=== PATIENT | female | born 1975 ===

== ENCOUNTER 2017-08-23 15:45 | Emergency (ER) | payer MEDICAID ==
[2017-08-23 15:45] VITALS: BMI 46.5
--- NOTE | 2017-08-23 16:05 | ED PDOC ---
Arrival/HPI - General Chief Complaint: Abdominal Pain Time Seen by Provider: 08/23/17 16:05 Historian: Patient - History of Present Illness Narrative History of Present Illness (Text): 08/23/17 16:51 41 year old female presents to the Emergency department complaining of epigastric discomfort radiating to back and flank bilaterally for less than 1 day. Patient describes the pain as 10/10 with some burning discomfort. Patient informs bitter taste in her mouth associated with radiating epigastric pain up to her chest. Patient states mild shortness of breath and decreased appetite. Patient informs similar symptoms in the past for which she was diagnosed with gastritis. Patient states her last endoscopy and [place] [facility] [place] Patient admits to spicy food intake last night and is an occasional caffeine drinker. Patient denies any fever, chills, nausea, vomiting, changes to urinary output or bowel movement, syncope, chest pain, LOC, hematuria, hematochezia or any other complains. Time/Duration: 24 hours Symptom Onset: Gradual Symptom Course: Unchanged Quality: Aching Severity Level: Severe Activities at Onset: Light Context: Home Past Medical History - Provider Review Nursing Documentation Reviewed: Yes - Travel History Have you recently traveled outside [place] w/in the past 3 mons?: No - Past History Past History: No Previous - Infectious Disease Hx of Infectious Diseases: None - Tetanus Immunization Tetanus Immunization: Unknown - Cardiac Hx Cardiac Disorders: No - Pulmonary Hx Asthma: Yes - Neurological Hx Neurological Disorder: No - HEENT Hx HEENT Disorder: No - Renal Hx Renal Disorder: No - Endocrine/Metabolic Hx Endocrine Disorders: No - Hematological/Oncological Hx Blood Disorders: No - Integumentary Hx Dermatological Disorder: No - Musculoskeletal/Rheumatological Hx Musculoskeletal Disorders: No - Gastrointestinal Hx Gastrointestinal Disorders: No - Genitourinary/Gynecological Hx Genitourinary Disorders: No - Psychiatric Hx Anxiety: Yes Hx Depression: Yes Hx Substance Use: No - Surgical History Hx Section: Yes (X2(1996,2005)) Hx Tubal Ligation: Yes - Anesthesia Hx Anesthesia: Yes Hx Anesthesia Reactions: No Hx Malignant Hyperthermia: No - Suicidal Assessment Feels Threatened In Home Enviroment: No Family/Social History - Physician Review Nursing Documentation Reviewed: Yes Family/Social History: No Known Family HX Smoking Status: Never Smoked Hx Alcohol Use: No Hx Substance Use: No Hx Substance Use Treatment: No Allergies/Home Meds Allergies/Adverse Reactions: Allergies seasonal Allergy (Mild, Uncoded 08/23/17 16:10) CONGESTION Home Medications: Home Meds Medication Instructions Recorded Confirmed Amitriptyline [Elavil] 100 mg PO BID 09/15/16 08/23/17 Butalbital/Acetaminophen 1 tab PO BID 09/15/16 08/23/17 [Butalbital-Acetaminophen 325 mg-50 mg] Gabapentin [Neurontin] 2 cap PO BID 09/15/16 08/23/17 LORazepam [Ativan] 1 mg PO DAILY PRN 09/15/16 08/23/17 Montelukast [Singulair] 10 mg PO HS 09/15/16 08/23/17 Omeprazole 40 mg PO BID 09/15/16 08/23/17 Trazodone HCl 150 mg PO HS 09/15/16 08/23/17 Albuterol HFA [Ventolin HFA 90 200 puff IH PRN PRN 10/28/16 08/23/17 mcg/actuation (8 g)] FLUoxetine [Prozac] 10 mg PO DAILY 10/28/16 08/23/17 Latanoprost 0.005% Opht [XALATAN 2.5 ml OP HS 10/28/16 08/23/17 2.5 Ml] Review of Systems - Review of Systems Constitutional: Fatigue Eyes: Normal ENT: Normal Respiratory: SOB Cardiovascular: Chest Pain Gastrointestinal: Abdominal Pain, Nausea. absent: Constipation, Diarrhea, Vomiting Genitourinary Female: Normal Musculoskeletal: Normal Skin: Normal Neurological: Normal Endocrine: Normal Hemo/Lymphatic: Normal Psychiatric: Normal Physical Exam Vital Signs Reviewed: Yes Vital Signs Temp Pulse Resp BP Pulse Ox 08/23/17 16:18 98.2 F 91 H 17 125/77 98 Temperature: Afebrile Blood Pressure: Normal Pulse: Regular Respiratory Rate: Normal Appearance: Positive for: Well-Appearing, Uncomfortable, Other (alert/awake, GCS = 15, oriented x 3, cooperative, follows commands with ease, NAD, resting in bed) Mental Status: Positive for: Alert and Oriented X 3 - Systems Exam Head: Present: Atraumatic, Normocephalic Pupils: Present: PERRL, Other (no nystagmus, no photophobia, sclera anicteric, visual field intact b/l) Extroacular Muscles: Present: EOMI Conjunctiva: Present: Normal Ears: Present: Normal Mouth: Present: Dry, Normal Teeth, Other (uvula/tongue are midline, no exudate/ lesions, no drooling/stridor, intact dentitions) Pharnyx: Present: Normal Nose (External): Present: Atraumatic Nose (Internal): Present: Normal Inspection Neck: Present: Normal Range of Motion, Trachea Midline. No: MIDLINE TENDERNESS Respiratory/Chest: Present: Clear to Auscultation, Good Air Exchange. No: Respiratory Distress Cardiovascular: Present: Regular Rate and Rhythm, Normal S1, S2. No: Murmurs Abdomen: Present: Tenderness (mid abd tenderness), Normal Bowel Sounds, Other ( well nourished/obese female, no sotelo's sign, no mcburney's point tenderness, no masses/rebound/guarding/rigidity) Back: Present: Normal Inspection. No: CVA Tenderness Upper Extremity: Present: Normal Inspection, Normal ROM, NORMAL PULSES, Neurovascularly Intact, Capillary Refill < 2s. No: Edema Lower Extremity: Present: Normal Inspection, NORMAL PULSES, Normal ROM, Neurovascularly Intact, Capillary Refill < 2 s. No: Edema Neurological: Present: GCS=15, CN II-XII Intact, Speech Normal Skin: Present: Warm, Other (cap refill < 1sec, no ulcerations, no petechiae, no rashes) Psychiatric: Present: Alert, Oriented x 3, Normal Insight Medical Decision Making ED Course and Treatment: 08/23/17 16:29 Impression: epigastric pain i have consider all the differential diagnosis regarding pt's chief medical complaints/clinical findings, including but are not limited to: epigastric pain A/P: epigastric pain - labs - iv - us - ua - observe - supportive care 08/23/17 17:58 pt felt some improvement pt is currently feeling sob and is asking for rescue inhaler 08/23/17 19:25 pt tolerated PO pt states her pain is easing up pt is made aware of her medical results pt does not feel it necessary for further dx with U/S, and i agree, will cancel pt is encouraged bland diet pt is encouraged no fatty/spicy foods pt will f/u as directed pt will be discharged home Re-evaluation Time: 17:55 Reassessment Condition: Improving,but remains with symptoms - Lab Interpretations Lab Results: 08/23/17 16:40 08/23/17 16:40 Lab Results 08/23/17 16:40: Sodium 138, Potassium 3.4 L, Chloride 102, Carbon Dioxide 28, Anion Gap 12, BUN 10, Creatinine 0.6 L, Est GFR ( Amer) > 60, Est GFR ( Non-Af Amer) > 60, Random Glucose 118 H, Calcium 8.6, Total Bilirubin 0.7, AST 21, ALT 24, Alkaline Phosphatase 64, Total Protein 6.1, Albumin 3.2, Globulin 2.9, Albumin/Globulin Ratio 1.1, Lipase 20 L 08/23/17 16:40: WBC 12.3 H D, RBC 5.03, Hgb 9.6 L, Hct 34.7 L, MCV 69.0 L, MCH 19.1 L, MCHC 27.7 L, RDW 21.3 H, Plt Count 581 H, MPV 8.2, Gran % 85.0 H, Lymph % (Auto) 10.8 L, [place] % (Auto) 3.9, Eos % (Auto) 0.2 L, Baso % (Auto) 0.1, Gran # 10.44 H, Lymph # (Auto) 1.3, Hubbard # (Auto) 0.5, Eos # (Auto) 0.0, Baso # (Auto ) 0.01 I have reviewed the lab results: Yes Interpretation: All labs normal - RAD Interpretation Radiology Orders: U/S - cancelled - EKG Interpretation EKG Interpretation (Text): 08/23/17 18:00 NSR at 90 bpm, normal axis, no ectopy, poor R-wave progression, non-specific st- t changes, ABNL EKG; unchanged compare with old ekg 12/2016 Interpreted by ED Physician: Yes Type: 12 lead EKG Comparison: Similar to previous EKG - Medication Orders Current Medication Orders: Discontinued Medications Al Hydrox/Mg Hydrox/Simethicone (Maalox Plus 30 Ml) 30 ml PO STAT STA Stop: 08/23/17 16:29 Last Admin: 08/23/17 16:50 Dose: 30 ml Albuterol/Ipratropium (Duoneb 3 Mg/0.5 Mg (3 Ml) Ud) 3 ml IH STAT STA Stop: 08/23/17 17:51 Last Admin: 08/23/17 18:06 Dose: 3 ml Belladonna/Phenobarbital ( Elixir) 10 ml PO STAT STA Stop: 08/23/17 16:28 Last Admin: 08/23/17 17:28 Dose: 10 ml Famotidine (Pepcid) 20 mg IVP STAT STA Stop: 08/23/17 16:27 Last Admin: 08/23/17 16:50 Dose: 20 mg IVP Administration Document 08/23/17 16:50 RG (Rec: 08/23/17 16:50 RG [id number]) Charges for Administration # of IVP Administrations 1 Sodium Chloride (Sodium Chloride 0.9%) 1,000 mls @ 1,000 mls/hr IV .Q1H STA Stop: 08/23/17 17:25 Last Admin: 08/23/17 16:48 Dose: 1,000 mls/hr eMAR Start Stop Document 08/23/17 16:48 RG (Rec: 08/23/17 17:36 RG [id number]) Intravenous Solution Start Date 08/23/17 Start Time 16:48 Lidocaine HCl (Lidocaine 2% Viscous) 10 ml MM STAT STA Stop: 08/23/17 16:29 Last Admin: 08/23/17 16:49 Dose: 10 ml Morphine Sulfate (Morphine) 4 mg IVP STAT STA Stop: 08/23/17 16:27 Last Admin: 08/23/17 17:35 Dose: IVP Administration Document 08/23/17 17:35 RG (Rec: 08/23/17 17:35 RG [id number]) Charges for Administration # of IVP Administrations 0 Morphine Sulfate (Morphine) 4 mg IVP STAT STA Stop: 08/23/17 17:00 Last Admin: 08/23/17 17:29 Dose: 4 mg IVP Administration Document 08/23/17 17:29 RG (Rec: 08/23/17 17:29 RG [id number]) Charges for Administration # of IVP Administrations 1 Ondansetron HCl (Zofran Inj) 4 mg IVP STAT STA Stop: 08/23/17 16:27 Last Admin: 08/23/17 16:50 Dose: 4 mg IVP Administration Document 08/23/17 16:50 RG (Rec: 08/23/17 16:50 RG [id number]) Charges for Administration # of IVP Administrations 1 - Scribe Statement The provider has reviewed the documentation as recorded by the Scribe Gela Sheehan. All medical record entries made by the Scribe were at my direction and personally dictated by me. I have reviewed the chart and agree that the record accurately reflects my personal performance of the history, physical exam, medical decision making, and the department course for this patient. I have also personally directed, reviewed, and agree with the discharge instructions and disposition. Disposition/Present on Arrival - Present on Arrival Any Indicators Present on Arrival: No History of DVT/PE: No History of Uncontrolled Diabetes: Yes Urinary Catheter: No History of Decub. Ulcer: No History Surgical Site Infection Following: None - Disposition Have Diagnosis and Disposition been Completed?: Yes Diagnosis: Acute epigastric pain, Gastritis Disposition: HOME/ ROUTINE Disposition Time: 18:53 Patient Plan: Discharge Patient Problems: Current Active Problems Problem Status Onset Acute epigastric pain Acute Gastritis Acute Condition: STABLE Discharge Instructions (ExitCare): Gastritis (ED), Epigastric Pain (ED) Print Language: SWEDISH Additional Instructions: Make sure to see your doctor in 1-2 days AVOID spicy/fatty foods AVOID alcohol DRINK PLENTY OF FLUIDS take your medications as prescribed RETURN TO ED IF worse pain, cant breath, persistent vomiting, high fever >101- 102 for hours, altered behavior, unable to urinate, heavy/persistent bleeding, passing out, chest pain, or other medical emergencies Prescriptions: Lidocaine 2% Viscous 10 ml MM TID PRN #1 bottle PRN Reason: Pain, Mild (1-3) Ondansetron ODT [Zofran ODT] 4 mg PO TID PRN #12 odt PRN Reason: Nausea/Vomiting oxyCODONE/Acetaminophen [Percocet 5/325 mg Tab] 1 tab PO QID PRN #10 tab PRN Reason: Pain, Moderate (4-7) Referrals: Arun Connors Jr., MD [Primary Care Provider] - Follow up with primary Raleigh Adhikari MD [Staff Provider] - Follow up with primary Forms: [employer] (Sri [place]ankan)
[2017-08-23 16:25] VITALS: TEMP 98.2
[2017-08-23] MEDS ORDERED: Morphine 4 mg/ml ISec IVP STA (16:26)
[2017-08-23] MEDS ORDERED: Sodium Chloride 0.9% 1,000 ML IV STA (16:26)
[2017-08-23] MEDS ORDERED: Atrop/Hyosc/Scopal/PB Elixir (120 ml) PO STA (16:27)
[2017-08-23] MEDS ORDERED: Alum-Mag Hydrox-Simethicone Susp (30 mL) PO STA (16:28)
[2017-08-23] MEDS ORDERED: Morphine 5 MG/ML SYRINGE IVP STA (16:59)
[2017-08-23 17:05] LABS: BASO # 0.01 K/mm3 (0.0-2.0); BASO % 0.1 % (0.0-3.0); EOS % 0.2 % (1.5-5.0); GRAN # 10.44 (1.4-6.5); HEMOGLOBIN 9.6 g/dL (12.0-16.0); LYMPH # 1.3 (1.2-3.4); LYMPH % 10.8 % (22.0-35.0); MEAN CORPUSCULAR HEMOGLOBIN 19.1 pg (25.0-35.0); MEAN CORPUSCULAR HGB CONC 27.7 g/dl (31.0-37.0); MEAN PLATELET VOLUME 8.2 fl (7.0-11.0); MONO # 0.5 (0.1-0.6); MONO % 3.9 % (1.0-6.0); RBC 5.03 10^6/uL (3.5-6.1); RED CELL DISTRIBUTION WIDTH 21.3 % (11.5-14.5); WHITE BLOOD COUNT 12.3 10^3/ul (4.5-11.0)
[2017-08-23 17:14] LABS: ALB/GLOB RATIO 1.1 (1.1-1.8); ALBUMIN 3.2 g/dL (3.0-4.8); ALT/SGPT 24 U/L (7-56); AST/SGOT 21 U/L (14-36); BLOOD UREA NITROGEN 10 mg/dL (7-21); CALCIUM 8.6 mg/dL (8.4-10.5); GFR AFRICAN-AMERICAN > 60; GFR NON-AFRICAN AMERICAN > 60; LIPASE 20 U/L (23-300)
[2017-08-23] MEDS ORDERED: Albuterol-Ipratrop 3 mg / 0.5 (3 ml) UD IH STA (17:50)
[2017-08-23 19:47] VITALS: BP 125/70; PULSE 95; RESP 18; O2SAT 99
[2017-08-23 23:24] LABS: URINE BILIRUBIN NEGATIVE (NEGATIVE); URINE BLOOD NEGATIVE (NEGATIVE); URINE GLUCOSE (UA) NEGATIVE (NEGATIVE); URINE LEUKOCYTE ESTERASE SMALL Leu/uL (NEGATIVE); URINE NITRATE NEGATIVE (NEGATIVE); URINE PROTEIN 30 mg/dL (<30 mg/dL); URINE UROBILINOGEN 0.2 E.U./dL (<1 E.U./dL)
[2017-08-23 23:27] LABS: URINE APPEARANCE SL CLOUDY (CLEAR); URINE COLOR YELLOW (YELLOW)
[2017-08-23 23:39] LABS: URINE RBC 0 - 2 /hpf (0-2)
[2017-08-23 23:40] LABS: URINE BACTERIA FEW (NEG)
--- NOTE | 2017-08-24 11:54 | CARD ---
APPROVED REPORT EKG Measurement Heart [id number] <Conclusion> Normal sinus rhythm Minimal voltage criteria for LVH, may be normal variant Borderline ECG
== END 2017-08-23 19:20 | disposition home or self-care (01) ==
LOC: ED 15:45
DX: K29.70 Gastritis, unspecified, without bleeding (principal)
CPT/HCPCS: 80053; 81001; 83690; 85025; 87086; 93005; 94640; 96374; 96375; 99284; J2270; J2405; J7040

== ENCOUNTER 2017-10-17 13:32 | Emergency (ER) | payer MEDICAID ==
[2017-10-17 13:33] VITALS: BMI 46.5
[2017-10-17 13:41] VITALS: TEMP 98.4
[2017-10-17] MEDS ORDERED: Sodium Chloride 0.9% 1,000 ML IV STA (14:09)
--- NOTE | 2017-10-17 14:15 | ED PDOC ---
Arrival/HPI - General Chief Complaint: GI Problem Time Seen by Provider: 10/17/17 13:52 Historian: Patient - History of Present Illness Narrative History of Present Illness (Text): 10/17/17 14:09 41 year old female, with past medical history of asthma and hernia, presents to the Emergency department complaining of epigastric and right upper quadrant tenderness for past 3 days. Patient informs associated mild nausea and watery diarrhea with 1 episode since onset. Patient denies any fever, chills,vomiting, dysuria, hematuria, chest pain, shortness of breath or any other complaints. PMD: Dr. Connors Time/Duration: < week Symptom Onset: Gradual Symptom Course: Unchanged Quality: Aching Activities at Onset: Light Context: Home Past Medical History - Provider Review Nursing Documentation Reviewed: Yes - Past History Past History: No Previous - Infectious Disease Hx of Infectious Diseases: None - Tetanus Immunization Tetanus Immunization: Unknown - Cardiac Hx Cardiac Disorders: No - Pulmonary Hx Asthma: Yes - Neurological Hx Neurological Disorder: No Hx Alzheimer's Disease: No Hx Migraine: Yes - HEENT Hx HEENT Disorder: No - Renal Hx Renal Disorder: No - Endocrine/Metabolic Hx Endocrine Disorders: No - Hematological/Oncological Hx Blood Disorders: No - Integumentary Hx Dermatological Disorder: No - Musculoskeletal/Rheumatological Hx Musculoskeletal Disorders: Yes Hx Back Pain: Yes Hx Herniated Disk: Yes - Gastrointestinal Hx Gastrointestinal Disorders: No - Genitourinary/Gynecological Hx Genitourinary Disorders: No - Psychiatric Hx Anxiety: Yes Hx Depression: Yes Hx Substance Use: No - Surgical History Hx Section: Yes (X2(1996,2005)) Hx Tubal Ligation: Yes - Anesthesia Hx Anesthesia: Yes Hx Anesthesia Reactions: No Hx Malignant Hyperthermia: No - Suicidal Assessment Feels Threatened In Home Enviroment: No Family/Social History - Physician Review Nursing Documentation Reviewed: Yes Family/Social History: No Known Family HX Smoking Status: Never Smoked Hx Alcohol Use: No Hx Substance Use: No Hx Substance Use Treatment: No Allergies/Home Meds Allergies/Adverse Reactions: Allergies seasonal Allergy (Mild, Uncoded 08/23/17 16:10) CONGESTION Home Medications: Home Meds Medication Instructions Recorded Confirmed Amitriptyline [Elavil] 100 mg PO BID 09/15/16 10/17/17 Butalbital/Acetaminophen 1 tab PO BID PRN 09/15/16 10/17/17 [Butalbital-Acetaminophen 325 mg-50 mg] Gabapentin [Neurontin] 2 cap PO BID 09/15/16 10/17/17 LORazepam [Ativan] 1 mg PO DAILY PRN 09/15/16 10/17/17 Montelukast [Singulair] 10 mg PO HS 09/15/16 10/17/17 Omeprazole 40 mg PO BID 09/15/16 10/17/17 Trazodone HCl 150 mg PO HS 09/15/16 10/17/17 Albuterol HFA [Ventolin HFA 90 200 puff IH PRN PRN 10/28/16 10/17/17 mcg/actuation (8 g)] FLUoxetine [Prozac] 10 mg PO DAILY 10/28/16 10/17/17 Latanoprost 0.005% Opht [XALATAN 2.5 ml OP HS 10/28/16 10/17/17 2.5 Ml] Review of Systems - Physician Review All systems were reviewed & negative as marked: Yes - Review of Systems Constitutional: Normal. absent: Fevers Eyes: Normal ENT: Normal Respiratory: Normal. absent: SOB Cardiovascular: Normal. absent: Chest Pain Gastrointestinal: Abdominal Pain, Diarrhea, Nausea (mild). absent: Vomiting Genitourinary Female: Normal. absent: Dysuria, Hematuria Musculoskeletal: Normal Skin: Normal Neurological: Normal Endocrine: Normal Hemo/Lymphatic: Normal Psychiatric: Normal Physical Exam Vital Signs Reviewed: Yes Vital Signs Temp Pulse Resp BP Pulse Ox 10/17/17 17:12 89 18 113/79 98 10/17/17 16:25 97 H 17 115/82 98 10/17/17 15:35 99 H 18 114/75 96 10/17/17 13:40 98.4 F 111 H 18 112/77 96 Temperature: Afebrile Blood Pressure: Normal Pulse: Tachycardic Respiratory Rate: Normal Appearance: Positive for: Well-Appearing, Non-Toxic, Comfortable Pain Distress: None Mental Status: Positive for: Alert and Oriented X 3 - Systems Exam Head: Present: Atraumatic, Normocephalic Pupils: Present: PERRL Extroacular Muscles: Present: EOMI Conjunctiva: Present: Normal Mouth: Present: Moist Mucous Membranes Neck: Present: Normal Range of Motion Respiratory/Chest: Present: Clear to Auscultation, Good Air Exchange. No: Respiratory Distress, Accessory Muscle Use Cardiovascular: Present: Regular Rate and Rhythm, Normal S1, S2. No: Murmurs Abdomen: Present: Tenderness (mild epigastric right upper quadrant tenderness.) , Normal Bowel Sounds, Other (No Mccracken's sign). No: Distention, Peritoneal Signs Back: Present: Normal Inspection Upper Extremity: Present: Normal Inspection. No: Cyanosis, Edema Lower Extremity: Present: Normal Inspection. No: Edema Neurological: Present: GCS=15, CN II-XII Intact, Speech Normal Skin: Present: Warm, Dry, Normal Color. No: Rashes Psychiatric: Present: Alert, Oriented x 3, Normal Insight, Normal Concentration Medical Decision Making ED Course and Treatment: 10/17/17 14:15 Impression: Plan: -- Labs -- Pepcid -- IV Fluids -- Zofran -- Urine Cultur -- Urinalysis -- Ultrasound of Abdomen -- Reassess and disposition Prior Visits: Notes and results from previous visits were reviewed. On 08/23/17 patient was seen in the Emergency department for epigastric discomfort. Patient was discharged home after treatment. Progress Notes: 10/17/17 16:11 Ultrasound of Abdomen reviewed by radiologist, shows hepatomegaly/hepatic steatosis. Similar findings identified on the most recent study. Overall, no interval change. 10/17/17 16:27 Discussed Urinalysis finding with patient, who understands and aware of talking to her partner for being evaluated and treated. - Lab Interpretations Lab Results: 10/17/17 15:15 10/17/17 15:15 Lab Results 10/17/17 15:15: Sodium 139, Potassium 3.0 L, Chloride 104, Carbon Dioxide 28, Anion Gap 9 L, BUN 6 L, Creatinine 0.7, Est GFR ( Amer) > 60, Est GFR ( Non-Af Amer) > 60, Random Glucose 109, Calcium 9.3, Total Bilirubin 0.8, AST 18 , ALT 22, Alkaline Phosphatase 83, Total Protein 6.0, Albumin 3.2, Globulin 2.8 , Albumin/Globulin Ratio 1.2, Lipase 22 L 10/17/17 15:15: WBC 7.6 D, RBC 5.04, Hgb 9.4 L, Hct 33.7 L, MCV 66.9 L, MCH 18.7 L, MCHC 27.9 L, RDW 21.5 H, Plt Count 563 H, MPV 8.4, Gran % 65.9, Lymph % (Auto) 19.2 L, Mckenzie % (Auto) 10.1 H, Eos % (Auto) 4.5, Baso % (Auto) 0.3, Gran # 5.04, Lymph # (Auto) 1.5, Mckenzie # (Auto) 0.8 H, Eos # (Auto) 0.3, Baso # (Auto ) 0.02 10/17/17 14:15: Urine Color Yellow, Urine Appearance Cloudy, Urine pH 6.0, Ur Specific [place] >= 1.030, Urine Protein 30 H, Urine Glucose (UA) Negative, Urine Ketones Trace H, Urine Blood Trace-lysed H, Urine Nitrate Negative, Urine Bilirubin Small H, Urine Urobilinogen 0.2, Ur Leukocyte Esterase Moderate H, Urine RBC 2 - 5, Urine WBC 15 - 20, Ur Epithelial Cells Many, Urine Bacteria Small, Urine Other Trichomonas - RAD Interpretation Radiology Orders: 10/17/17 14:09 ABDOMEN COMPLETE [US] Stat - Medication Orders Current Medication Orders: Discontinued Medications Famotidine (Pepcid) 20 mg IVP STAT STA Stop: 10/17/17 14:10 Last Admin: 10/17/17 15:03 Dose: 20 mg IVP Administration Document 10/17/17 15:03 SF (Rec: 10/17/17 15:03 SF [facility] [id number]) Charges for Administration # of IVP Administrations 1 Sodium Chloride (Sodium Chloride 0.9%) 1,000 mls @ 1,000 mls/hr IV .Q1H STA Stop: 10/17/17 15:08 Last Admin: 10/17/17 14:41 Dose: 1,000 mls/hr eMAR Start Stop Document 10/17/17 14:41 SF (Rec: 10/17/17 14:41 SF [facility] [id number]) Intravenous Solution Start Date 10/17/17 Start Time 14:41 End Date 10/17/17 End time 15:41 Total Infusion Time 60 Ondansetron HCl (Zofran Inj) 4 mg IVP STAT STA Stop: 10/17/17 14:10 Last Admin: 10/17/17 15:03 Dose: 4 mg IVP Administration Document 10/17/17 15:03 SF (Rec: 10/17/17 15:03 [email or web address] Charges for Administration # of IVP Administrations 1 Potassium Chloride (K-Dur 20 Meq Er Tab) 40 meq PO STAT STA Stop: 10/17/17 16:33 Last Admin: 10/17/17 17:07 Dose: 40 meq - Scribe Statement The provider has reviewed the documentation as recorded by the Scribe Gela Sheehan. All medical record entries made by the Scribe were at my direction and personally dictated by me. I have reviewed the chart and agree that the record accurately reflects my personal performance of the history, physical exam, medical decision making, and the department course for this patient. I have also personally directed, reviewed, and agree with the discharge instructions and disposition. Disposition/Present on Arrival - Present on Arrival Any Indicators Present on Arrival: No History of DVT/PE: No History of Uncontrolled Diabetes: No Urinary Catheter: No History of Decub. Ulcer: No History Surgical Site Infection Following: None - Disposition Have Diagnosis and Disposition been Completed?: Yes Diagnosis: Abdominal pain, infection, trichomonal Disposition: HOME/ ROUTINE Disposition Time: 16:00 Condition: GOOD Discharge Instructions (ExitCare): Trichomoniasis Additional Instructions: Thank you for letting us take care of you today. The emergency medical care you received today was directed at your acute symptoms. If you were prescribed any medication, please fill it and take as directed. It may take several days for your symptoms to resolve. Return to the Emergency Department if your symptoms worsen, do not improve, or if you have any other problems. Please contact your doctor or call one of the physicians/clinics you have been referred to that are listed on the Patient Visit Information form that is included in your discharge packet. Bring any paperwork you were given at discharge with you along with any medications you are taking to your follow up visit. Our treatment cannot replace ongoing medical care by a primary care provider (PCP) outside of the emergency department. Thank you for allowing the [facility] team to be part of your care today. Please let your sexual partner know of test results here today. Follow up with your primary doctor in 3-4 days for re-evaluation. Prescriptions: metroNIDAZOLE [Flagyl] 500 mg PO Q8 #21 tab Referrals: Arun Connors Jr., MD [Primary Care Provider] - Follow up with primary Forms: [employer] (Austrian)
[2017-10-17 14:35] LABS: URINE BILIRUBIN SMALL (NEGATIVE); URINE BLOOD TRACE-LYSED (NEGATIVE); URINE GLUCOSE (UA) NEGATIVE (NEGATIVE); URINE LEUKOCYTE ESTERASE MODERATE Leu/uL (NEGATIVE); URINE PROTEIN 30 mg/dL (<30 mg/dL); URINE UROBILINOGEN 0.2 E.U./dL (<1 E.U./dL)
[2017-10-17 14:36] LABS: URINE APPEARANCE CLOUDY (CLEAR); URINE COLOR YELLOW (YELLOW)
[2017-10-17 14:43] LABS: URINE BACTERIA SMALL (NEG); URINE EPITHELIAL CELLS MANY /hpf (0-5); URINE WBC 15 - 20 /hpf (0-6)
[2017-10-17 15:25] LABS: BASO # 0.02 K/mm3 (0.0-2.0); BASO % 0.3 % (0.0-3.0); EOS # 0.3 (0.0-0.7); EOS % 4.5 % (1.5-5.0); GRAN # 5.04 (1.4-6.5); GRAN % 65.9 % (50.0-68.0); HEMOGLOBIN 9.4 g/dL (12.0-16.0); LYMPH # 1.5 (1.2-3.4); LYMPH % 19.2 % (22.0-35.0); MEAN CELL VOLUME 66.9 fl (80.0-105.0); MEAN CORPUSCULAR HEMOGLOBIN 18.7 pg (25.0-35.0); MEAN CORPUSCULAR HGB CONC 27.9 g/dl (31.0-37.0); MEAN PLATELET VOLUME 8.4 fl (7.0-11.0); MONO # 0.8 (0.1-0.6); MONO % 10.1 % (1.0-6.0); RBC 5.04 10^6/uL (3.5-6.1); RED CELL DISTRIBUTION WIDTH 21.5 % (11.5-14.5); WHITE BLOOD COUNT 7.6 10^3/ul (4.5-11.0)
[2017-10-17 15:33] LABS: ALB/GLOB RATIO 1.2 (1.1-1.8); ALBUMIN 3.2 g/dL (3.0-4.8); ALT/SGPT 22 U/L (7-56); AST/SGOT 18 U/L (14-36); BLOOD UREA NITROGEN 6 mg/dL (7-21); CALCIUM 9.3 mg/dL (8.4-10.5); GFR AFRICAN-AMERICAN > 60; GFR NON-AFRICAN AMERICAN > 60; LIPASE 22 U/L (23-300)
--- NOTE | 2017-10-17 16:02 | US ---
HISTORY: epigastric/RUQ tenderness COMPARISON: 09/26/2015 TECHNIQUE: Sonographic evaluation of the abdomen. FINDINGS: LIVER: Measures 21.5 cm. Hepatopedal blood flow. Fatty infiltration manifest ultrasonographically as increased echogenicity of the liver parenchyma. No mass. No intrahepatic bile duct dilatation. GALLBLADDER: Unremarkable. No gallstones. COMMON BILE DUCT: Measures 3.4 mm. No stones. No dilatation. PANCREAS: Unremarkable as visualized. No mass. No ductal dilatation. RIGHT KIDNEY: Measures 4.7 x 12.0cm. Normal echogenicity. No calculus, mass, or hydronephrosis. LEFT KIDNEY: Measures 5.4 x 11.6cm. Normal echogenicity. No calculus, mass, or hydronephrosis. SPLEEN: Normal in size and contour. No mass. AORTA: No aneurysmal dilatation. IVC: Unremarkable. OTHER FINDINGS: None. IMPRESSION: Hepatomegaly/hepatic steatosis. Similar findings identified on the most recent study. Overall, no interval change.
[2017-10-17 16:26] VITALS: O2SAT 98
[2017-10-17] MEDS ORDERED: Potassium Chloride 20 mEq ER Tab PO STA (16:32)
[2017-10-17 17:13] VITALS: BP 113/79; PULSE 89; RESP 18
== END 2017-10-17 17:13 | disposition home or self-care (01) ==
LOC: ED 13:32
DX: A59.9 Trichomoniasis, unspecified (principal); R10.9 Unspecified abdominal pain
CPT/HCPCS: 76700; 80053; 81001; 83690; 85025; 87086; 87181; 96361; 96374; 96375; 99285; J2405; J7040

== ENCOUNTER 2018-02-20 12:25 | Emergency (ER) | payer MEDICAID ==
[2018-02-20 12:25] VITALS: BMI 46.5
[2018-02-20 12:37] VITALS: RESP 18; TEMP 98.1
[2018-02-20] MEDS ORDERED: Albuterol-Ipratrop 3 mg / 0.5 (3 ml) UD IH STA (13:01)
[2018-02-20] MEDS ORDERED: Albuterol 0.083% Inhal Sol (2.5 mg/3 mL) UD INH STA (13:01)
[2018-02-20 14:07] LABS: VENOUS BLOOD GAS BASE EXCESS 2.8 mmol/L (0.0-2.0); VENOUS BLOOD GAS PO2 31 mm/Hg (30-55); VENOUS BLOOD PH 7.36 (7.32-7.43)
[2018-02-20 14:09] LABS: BASO # 0.01 K/mm3 (0.0-2.0); BASO % 0.1 % (0.0-3.0); EOS # 0.3 (0.0-0.7); EOS % 4.6 % (1.5-5.0); GRAN # 4.86 (1.4-6.5); GRAN % 68.5 % (50.0-68.0); HEMOGLOBIN 9.9 g/dL (12.0-16.0); LYMPH # 1.5 (1.2-3.4); LYMPH % 20.7 % (22.0-35.0); MEAN CELL VOLUME 67.4 fl (80.0-105.0); MEAN CORPUSCULAR HGB CONC 28.1 g/dl (31.0-37.0); MEAN PLATELET VOLUME 7.9 fl (7.0-11.0); MONO # 0.4 (0.1-0.6); MONO % 6.1 % (1.0-6.0); RBC 5.22 10^6/uL (3.5-6.1); RED CELL DISTRIBUTION WIDTH 21.1 % (11.5-14.5); WHITE BLOOD COUNT 7.1 10^3/ul (4.5-11.0)
[2018-02-20 14:16] LABS: ALB/GLOB RATIO 1.2 (1.1-1.8); ALBUMIN 3.6 g/dL (3.0-4.8); ALT/SGPT 21 U/L (7-56); AST/SGOT 21 U/L (14-36); BLOOD UREA NITROGEN 7 mg/dL (7-21); CALCIUM 8.8 mg/dL (8.4-10.5); GFR AFRICAN-AMERICAN > 60; GFR NON-AFRICAN AMERICAN > 60
--- NOTE | 2018-02-20 14:52 | ED PDOC ---
Arrival/HPI - General Chief Complaint: Cough, Cold, Congestion Time Seen by Provider: 02/20/18 12:51 Historian: Patient - History of Present Illness Narrative History of Present Illness (Text): 02/20/18 13:00 Katelyn Coffey is a 42 year old female, whose past medical history includes asthma,depression, panic attacks, anxiety, who presents to the emergency department complaining of coughing and nasal congestion since last night, progressively worsened yesterday morning. Patient notes wheezing which is increased at night, and upper respiratory-like symptoms (dry cough and stuffy nose). Patient states she normally sees allergy doctor for asthma but it didn't open until 14:00 today, so she came to the Emergency department for evaluation. Patient states he had similar symptoms about 1 year ago and she went to [facility], was diagnosed with bronchitis, and was given an injection of steroid with significant relief. Patient denies any fever, chills, chest pain, nausea, vomiting, diarrhea, urinary symptoms, back pain, neck pain, headache, dizziness , or any other complaints. Time/Duration: 24 hours (started yesterday morning) Symptom Onset: Sudden Symptom Course: Unchanged Quality: Other (congested/stuffy nose) Activities at Onset: Light Past Medical History - Provider Review Nursing Documentation Reviewed: Yes - Past History Past History: No Previous - Infectious Disease Hx of Infectious Diseases: None - Tetanus Immunization Tetanus Immunization: Unknown - Cardiac Hx Cardiac Disorders: No - Pulmonary Hx Asthma: Yes - Neurological Hx Neurological Disorder: No Hx Alzheimer's Disease: No Hx Migraine: Yes - HEENT Hx HEENT Disorder: No - Renal Hx Renal Disorder: No - Endocrine/Metabolic Hx Endocrine Disorders: No - Hematological/Oncological Hx Blood Disorders: No - Integumentary Hx Dermatological Disorder: No - Musculoskeletal/Rheumatological Hx Musculoskeletal Disorders: Yes Hx Back Pain: Yes Hx Herniated Disk: Yes - Gastrointestinal Hx Gastrointestinal Disorders: No - Genitourinary/Gynecological Hx Genitourinary Disorders: No - Psychiatric Hx Anxiety: Yes Hx Depression: Yes Hx Substance Use: No - Surgical History Hx Section: Yes (X2(1996,2005)) Hx Tubal Ligation: Yes - Anesthesia Hx Anesthesia: Yes Hx Anesthesia Reactions: No Hx Malignant Hyperthermia: No - Suicidal Assessment Feels Threatened In Home Enviroment: No Family/Social History - Physician Review Nursing Documentation Reviewed: Yes Family/Social History: Unknown Family HX Smoking Status: Never Smoked Hx Alcohol Use: No Hx Substance Use: No Hx Substance Use Treatment: No Allergies/Home Meds Allergies/Adverse Reactions: Allergies seasonal Allergy (Mild, Uncoded 08/23/17 16:10) CONGESTION Home Medications: Home Meds Medication Instructions Recorded Confirmed Amitriptyline [Elavil] 100 mg PO BID 09/15/16 02/20/18 Butalbital/Acetaminophen 1 tab PO BID PRN 09/15/16 02/20/18 [Butalbital-Acetaminophen 325 mg-50 mg] Gabapentin [Neurontin] 2 cap PO BID 09/15/16 02/20/18 LORazepam [Ativan] 1 mg PO DAILY PRN 09/15/16 02/20/18 Montelukast [Singulair] 10 mg PO HS 09/15/16 02/20/18 Omeprazole 40 mg PO DAILY 09/15/16 02/20/18 Trazodone HCl 150 mg PO HS 09/15/16 02/20/18 Latanoprost 0.005% Opht [XALATAN 2.5 ml OP HS 10/28/16 02/20/18 2.5 Ml] Prednisone [Colin] 10 mg PO DAILY 02/20/18 02/20/18 Review of Systems - Physician Review All systems were reviewed & negative as marked: Yes - Review of Systems Constitutional: Normal. absent: Fevers Eyes: Normal. absent: Vision Changes ENT: Other (Stuffy nose). absent: Normal Respiratory: Cough (dry cough). absent: Normal Cardiovascular: Normal. absent: Chest Pain Gastrointestinal: Normal. absent: Abdominal Pain, Stool Changes, Constipation, Diarrhea, Nausea, Vomiting, Appetite Changes Genitourinary Female: Normal. absent: Urine Output Changes Musculoskeletal: Normal Skin: Normal. absent: Rash Neurological: Normal. absent: Headache, Dizziness Endocrine: Normal. absent: Diaphoresis Hemo/Lymphatic: Normal Psychiatric: Normal Physical Exam Vital Signs Reviewed: Yes Vital Signs Temp Pulse Resp BP Pulse Ox 02/20/18 15:33 97 H 18 117/78 97 02/20/18 12:34 98.1 F 109 H 18 128/84 96 Temperature: Afebrile Blood Pressure: Normal Pulse: Tachycardic (at 109) Respiratory Rate: Normal Appearance: Positive for: Well-Appearing, Non-Toxic, Comfortable Pain Distress: None Mental Status: Positive for: Alert and Oriented X 3 - Systems Exam Head: Present: Atraumatic, Normocephalic Pupils: Present: PERRL Extroacular Muscles: Present: EOMI Conjunctiva: Present: Normal Mouth: Present: Moist Mucous Membranes Neck: Present: Normal Range of Motion Respiratory/Chest: Present: Clear to Auscultation, Good Air Exchange, Respiratory Distress, Wheezes (wheezing bilaterally throughout (in upper, middle , and lower lobes) ). No: Accessory Muscle Use, Rales, Rhonchi Cardiovascular: Present: Regular Rate and Rhythm, Normal S1, S2. No: Murmurs Abdomen: No: Tenderness, Distention, Peritoneal Signs Back: Present: Normal Inspection Upper Extremity: Present: Normal Inspection. No: Cyanosis, Edema Lower Extremity: Present: Normal Inspection. No: Edema Neurological: Present: GCS=15, CN II-XII Intact, Speech Normal Skin: Present: Warm, Dry, Normal Color. No: Rashes Psychiatric: Present: Alert, Oriented x 3, Normal Insight, Normal Concentration Medical Decision Making ED Course and Treatment: 02/20/18 13:00 Impression: 42 year old female presents to the emergency department for coughing , nasal congestion and wheezing since yesterday morning. Plan: -- Venous blood gas -- Labs -- Albuterol -- Duoneb -- SOLU-Medrol -- Blood culture -- Reassess and disposition Progress Notes: 02/20/18 15:20 Chest X-Ray shows no infiltrates, as interpreted by me. Patient will be treated for bronchitis and discharged home. - Lab Interpretations Microbiology Results: Microbiology Results 02/20/18 14:05 Blood-Venous Blood Culture - Preliminary NO GROWTH AFTER 3 DAYS 02/20/18 13:30 Blood-Venous Blood Culture - Preliminary NO GROWTH AFTER 3 DAYS Lab Results: 02/20/18 13:30 02/20/18 13:30 Lab Results 02/20/18 13:30: Sodium 142, Chloride 106, Potassium 3.6, Carbon Dioxide 28, Anion Gap 12, BUN 7, Creatinine 0.6 L, Est GFR ( Amer) > 60, Est GFR (Non -Af Amer) > 60, Random Glucose 113 H, Calcium 8.8, Total Bilirubin 0.7, AST 21, ALT 21, Alkaline Phosphatase 84, Total Protein 6.7, Albumin 3.6, Globulin 3.1, Albumin/Globulin Ratio 1.2 02/20/18 13:30: pO2 31, VBG pH 7.36, VBG pCO2 52.0, VBG HCO3 29.4 H, VBG Total CO2 31.0 H, VBG O2 Sat (Calc) 58.9, VBG Base Excess 2.8 H, VBG Potassium 3.6, Sodium 142.0, Chloride 108.0 H, Glucose 118 H, Lactate 1.9, FiO2 21.0, Venous Blood Potassium 3.6 02/20/18 13:30: WBC 7.1, RBC 5.22, Hgb 9.9 L, Hct 35.2 L, MCV 67.4 L, MCH 19.0 L , MCHC 28.1 L, RDW 21.1 H, Plt Count 544 H, MPV 7.9, Gran % 68.5 H, Lymph % ( Auto) 20.7 L, [place] % (Auto) 6.1 H, Eos % (Auto) 4.6, Baso % (Auto) 0.1, Gran # 4.86, Lymph # (Auto) 1.5, [place] # (Auto) 0.4, Eos # (Auto) 0.3, Baso # (Auto) 0.01 - RAD Interpretation Radiology Orders: 02/20/18 14:48 CXR [CHEST PORTABLE] [RAD] Stat - Medication Orders Current Medication Orders: Discontinued Medications Albuterol Sulfate (Albuterol 0.083% Inhal Sarah (2.5 Mg/3 Ml) Ud) 5 mg INH STAT STA Stop: 02/20/18 13:02 Last Admin: 02/20/18 13:43 Dose: 5 mg Albuterol/Ipratropium (Duoneb 3 Mg/0.5 Mg (3 Ml) Ud) 3 ml IH STAT STA Stop: 02/20/18 13:02 Last Admin: 02/20/18 13:30 Dose: 3 ml Methylprednisolone (Solu-Medrol) 125 mg IVP STAT STA Stop: 02/20/18 13:02 Last Admin: 02/20/18 13:30 Dose: 125 mg IVP Administration Document 02/20/18 13:30 EQ (Rec: 02/20/18 13:44 EQ [email or web address]) Charges for Administration # of IVP Administrations 1 - Scribe Statement The provider has reviewed the documentation as recorded by the Scribe Jacy Alfaro All medical record entries made by the Scribe were at my direction and personally dictated by me. I have reviewed the chart and agree that the record accurately reflects my personal performance of the history, physical exam, medical decision making, and the department course for this patient. I have also personally directed, reviewed, and agree with the discharge instructions and disposition. Disposition/Present on Arrival - Present on Arrival Any Indicators Present on Arrival: No History of DVT/PE: No History of Uncontrolled Diabetes: No Urinary Catheter: No History of Decub. Ulcer: No History Surgical Site Infection Following: None - Disposition Have Diagnosis and Disposition been Completed?: Yes Diagnosis: Bronchitis Disposition: HOME/ ROUTINE Disposition Time: 23:00 Patient Plan: Discharge Condition: GOOD Discharge Instructions (ExitCare): Acute Bronchitis, Adult (DC) Additional Instructions: Katelyn - Start the meds today when you pick them up from the pharmacy. Both are just once a day. Return to us if any problems. Follow up with your doctor next week. Best- Dr. Douglas Casanova Prescriptions: levoFLOXacin [Levaquin] 750 mg PO STAT #10 tab Methylprednisolone [Medrol Dose Pack (21 tabs)] 4 mg PO DAILY #21 mg Referrals: Arun Connors Jr., MD [Primary Care Provider] - Follow up with primary Forms: [facility] (Thai), SCHOOL NOTE, WORK NOTE
[2018-02-20 15:34] VITALS: BP 117/78; PULSE 97; O2SAT 97
--- NOTE | 2018-02-20 16:13 | RAD ---
Date of service: 02/20/2018 HISTORY: Cough/Asthma COMPARISON: 07/03/2016 FINDINGS: LUNGS: No active pulmonary disease. PLEURA: No significant pleural effusion identified, no pneumothorax apparent. CARDIOVASCULAR: Normal. OSSEOUS STRUCTURES: No significant abnormalities. VISUALIZED UPPER ABDOMEN: Normal. OTHER FINDINGS: None. IMPRESSION: No active disease.
== END 2018-02-20 15:35 | disposition home or self-care (01) ==
LOC: ED 12:25
DX: J40 Bronchitis, not specified as acute or chronic (principal)
CPT/HCPCS: 71045; 80053; 82803; 85025; 87040; 94640; 96374; 99283; J2930

== ENCOUNTER 2018-04-27 04:36 | Emergency (ER) | payer MEDICAID ==
[2018-04-27 04:37] VITALS: BMI 46.5
[2018-04-27 04:45] VITALS: RESP 18; TEMP 98.3
[2018-04-27] MEDS ORDERED: Pantoprazole 40 mg EC Tab PO STA (05:02)
[2018-04-27] MEDS ORDERED: Albuterol-Ipratrop 3 mg / 0.5 (3 ml) UD IH STA (05:02)
--- NOTE | 2018-04-27 05:18 | ED PDOC ---
Arrival/HPI - History of Present Illness Narrative History of Present Illness (Text): 04/27/18 05:11 Pt is a 42 yo F with pmhx of Cushings disease, asthma, anxiety, depression, and VENKATA who presents for a panic attack and concomitant asthma attack. She states that this all started yesterday and reports that she has taken her albuterol treatment many times yesterday, last at 8pm without much relief. She also states that she has been having a panic attack since yesterday because she ran out of her lorazepam. She denies having any fevers, chills, but admits to a dry cough and SOB. She denies chest pain, abdominal pain, nausea or vomting but admits to a bloated feeling because she ran out of her omeprazole. Pmhx: Cushings disease, asthma, anxiety, depression, VENKATA Pshx: Tubal ligation All: NKDA Social: Denies any tobacco use, etoh use, or illicit drug use Fam Hx: Denies 04/27/18 05:19 04/27/18 05:24 Time/Duration: > week <Jing Schmidt - Last Filed: 04/27/18 06:21> <Fredrick Delaney - Last Filed: 04/27/18 06:28> - General Chief Complaint: Anxiety Time Seen by Provider: 04/27/18 04:37 Past Medical History - Provider Review Nursing Documentation Reviewed: Yes - Past History Past History: No Previous - Infectious Disease Hx of Infectious Diseases: None - Tetanus Immunization Tetanus Immunization: Unknown - Cardiac Hx Cardiac Disorders: No - Pulmonary Hx Asthma: Yes - Neurological Hx Alzheimer's Disease: No Hx Migraine: Yes - HEENT Hx HEENT Disorder: No - Renal Hx Renal Disorder: No - Endocrine/Metabolic Hx Endocrine Disorders: No - Hematological/Oncological Hx Blood Disorders: No - Integumentary Hx Dermatological Disorder: No - Musculoskeletal/Rheumatological Hx Musculoskeletal Disorders: Yes Hx Back Pain: Yes Hx Herniated Disk: Yes - Gastrointestinal Hx Gastrointestinal Disorders: No - Genitourinary/Gynecological Hx Genitourinary Disorders: No - Psychiatric Hx Anxiety: Yes Hx Depression: Yes Hx Panic Disorder: Yes Hx Substance Use: No - Surgical History Hx Section: Yes (X2(1996,2005)) Hx Tubal Ligation: Yes - Anesthesia Hx Anesthesia: Yes Hx Anesthesia Reactions: No Hx Malignant Hyperthermia: No - Suicidal Assessment Feels Threatened In Home Enviroment: No <Jing Schmidt - Last Filed: 04/27/18 06:21> Family/Social History - Physician Review Nursing Documentation Reviewed: Yes Family/Social History: No Known Family HX Smoking Status: Never Smoked Hx Alcohol Use: No Hx Substance Use: No Hx Substance Use Treatment: No <Jing Schmidt - Last Filed: 04/27/18 06:21> Allergies/Home Meds <Jing Schmidt - Last Filed: 04/27/18 06:21> <Fredrick Delaney - Last Filed: 04/27/18 06:28> Allergies/Adverse Reactions: Allergies seasonal Allergy (Mild, Uncoded 04/27/18 04:56) CONGESTION Home Medications: Home Meds Medication Instructions Recorded Confirmed Amitriptyline [Elavil] 100 mg PO BID 09/15/16 04/27/18 Omeprazole 40 mg PO DAILY 09/15/16 04/27/18 Trazodone HCl 150 mg PO HS 09/15/16 04/27/18 Review of Systems - Physician Review All systems were reviewed & negative as marked: Yes - Review of Systems Respiratory: SOB, Cough (dry) Cardiovascular: absent: Chest Pain, Palpitations <Jing Schmidt - Last Filed: 04/27/18 06:21> Physical Exam Vital Signs Reviewed: Yes Vital Signs Temp Pulse Resp BP Pulse Ox 04/27/18 04:44 98.3 F 117 H 18 180/90 H 100 Temperature: Afebrile Blood Pressure: Hypertensive Pulse: Tachycardic Respiratory Rate: Normal Appearance: Positive for: Non-Toxic, Uncomfortable (appears anxious ) Pain Distress: None Mental Status: Positive for: Alert and Oriented X 3 - Systems Exam Head: Present: Atraumatic, Normocephalic Pupils: Present: PERRL Extroacular Muscles: Present: EOMI Conjunctiva: Present: Normal Respiratory/Chest: Present: Clear to Auscultation, Good Air Exchange, Wheezes (present diffuesely in all lung walker). No: Respiratory Distress, Accessory Muscle Use, Rales, Rhonchi, Tachypneic Cardiovascular: Present: Normal S1, S2, Tachycardic. No: Murmurs, Rub, Gallop Abdomen: Present: Normal Bowel Sounds. No: Tenderness, Distention, Peritoneal Signs, Rebound, Guarding Neurological: Present: GCS=15, Speech Normal, Motor Func Grossly Intact, Normal Sensory Function Skin: Present: Warm, Dry, Normal Color. No: Rashes Psychiatric: Present: Alert, Oriented x 3, Normal Insight, Normal Concentration, Anxious <Jing Schmidt - Last Filed: 04/27/18 06:21> Vital Signs Temp Pulse Resp BP Pulse Ox 04/27/18 04:44 98.3 F 117 H 18 180/90 H 100 <Fredrick Delaney - Last Filed: 04/27/18 06:28> Medical Decision Making ED Course and Treatment: 04/27/18 05:23 Pt is a 42 yo F with pmhx detailed above who presents for anxiety and concomitant asthma attack. - Lorazepam .5mg PO - Duonebs - Solu-medrol 125mg IV - Protonix 40 PO 04/27/18 06:15 - Pt was seen and examined after the treatment. The pt states that she is breathing better and less anxious. Her lungs are clear. - Medication Orders Current Medication Orders: Discontinued Medications Albuterol/Ipratropium (Duoneb 3 Mg/0.5 Mg (3 Ml) Ud) 3 ml IH STAT STA Stop: 04/27/18 05:03 Lorazepam (Ativan) 0.5 mg PO ONCE ONE; Protocol Stop: 04/27/18 05:03 Methylprednisolone (Solu-Medrol) 125 mg IVP STAT STA Stop: 04/27/18 05:03 Pantoprazole Sodium (Protonix Ec Tab) 40 mg PO STAT STA Stop: 04/27/18 05:03 <Jing Schmidt - Last Filed: 04/27/18 06:21> ED Course and Treatment: 04/27/18 05:53 Patient is a 42 year old female presenting to the emergency department complaining of an anxiety and asthma attack. In agreement with resident note. Patient was seen and evaluated with resident, came up with plan and treatment together. - Medication Orders Current Medication Orders: Discontinued Medications Albuterol/Ipratropium (Duoneb 3 Mg/0.5 Mg (3 Ml) Ud) 3 ml IH STAT STA Stop: 04/27/18 05:03 Last Admin: 04/27/18 05:31 Dose: 3 ml Lorazepam (Ativan) 0.5 mg PO ONCE ONE; Protocol Stop: 04/27/18 05:03 Last Admin: 04/27/18 05:29 Dose: 0.5 mg Methylprednisolone (Solu-Medrol) 125 mg IVP STAT STA Stop: 04/27/18 05:03 Last Admin: 04/27/18 05:49 Dose: 125 mg IVP Administration Document 04/27/18 05:49 SS (Rec: 04/27/18 05:50 SS [id number]) Charges for Administration # of IVP Administrations 1 Pantoprazole Sodium (Protonix Ec Tab) 40 mg PO STAT STA Stop: 04/27/18 05:03 Last Admin: 04/27/18 05:31 Dose: 40 mg <Fredrick Delaney - Last Filed: 04/27/18 06:28> - PA / [employer]LECTION CLERK / Resident Statement MD/DO has reviewed & agrees with the documentation as recorded. MD/DO has examined the patient and agrees with the treatment plan. - Scribe Statement The provider has reviewed the documentation as recorded by the Scribe Yvrose Uribe All medical record entries made by the Scribe were at my direction and personally dictated by me. I have reviewed the chart and agree that the record accurately reflects my personal performance of the history, physical exam, medical decision making, and the department course for this patient. I have also personally directed, reviewed, and agree with the discharge instructions and disposition. <Fredrick Delaney - Last Filed: 04/27/18 06:28> Disposition/Present on Arrival - Present on Arrival Any Indicators Present on Arrival: No History of DVT/PE: No History of Uncontrolled Diabetes: No Urinary Catheter: No History of Decub. Ulcer: No History Surgical Site Infection Following: None - Disposition Have Diagnosis and Disposition been Completed?: Yes Disposition Time: 06:16 Patient Plan: Discharge <Jing Schmidt - Last Filed: 04/27/18 06:21> - Present on Arrival Any Indicators Present on Arrival: No - Disposition Have Diagnosis and Disposition been Completed?: Yes <Fredrick Delaney - Last Filed: 04/27/18 06:28> - Disposition Diagnosis: Anxiety, Asthma Disposition: HOME/ ROUTINE Patient Problems: Current Active Problems Problem Status Onset Anxiety Acute Asthma Acute Condition: GOOD Discharge Instructions (ExitCare): Asthma, Adult (DC), How to Use Your Metered Dose Inhaler (Adults) Additional Instructions: - Please follow up with your primary care doctor. - Please take your prescribed medications as directed. - Please come back to the emergency department if your symptoms worsen or new symptoms begin. Prescriptions: Omeprazole 40 mg PO DAILY #20 capsule. predniSONE [Prednisone] 40 mg PO DAILY #10 tab Albuterol HFA [Ventolin HFA 90 mcg/actuation (8 g)] 2 puff IH [id number] PRN #1 puff PRN Reason: Wheezing Referrals: Arun Connors Jr., MD [Primary Care Provider] - Follow up with primary Forms: [facility] (Irish)
[2018-04-27 07:15] VITALS: BP 126/82; PULSE 90; O2SAT 97
== END 2018-04-27 07:15 | disposition home or self-care (01) ==
LOC: ED 04:36
DX: J45.909 Unspecified asthma, uncomplicated (principal); F41.9 Anxiety disorder, unspecified
CPT/HCPCS: 96374; 99283; J2930

== ENCOUNTER 2018-06-22 15:32 | Inpatient (IN) | payer MEDICAID ==
[2018-06-22] MEDS: Albuterol-Ipratrop 3 mg / 0.5 (3 ml) UD IH SCH ×3 (15:50→16:29)
--- NOTE | 2018-06-22 16:01 | ED PDOC ---
Arrival/HPI - General Time Seen by Provider: 06/22/18 15:34 Historian: Patient - History of Present Illness Narrative History of Present Illness (Text): 06/22/18 15:48 42 year old female, with past medical history of asthma, presents to the Emergency department complaining of cough and congestion since Friday. Patient reports difficulty breathing secondary to symptoms, prompting her to present to the Emergency department for medical evaluation. Patient denies any other associated somatic complaints. Patient denies any fevers, chills, headache, dizziness, chest pain, cough, abdominal pain, nausea, vomiting, diarrhea, back pain, neck pain, or any other complaints. PMD: Dr. Connors Time/Duration: < week Symptom Onset: Gradual Symptom Course: Unchanged Activities at Onset: Light Context: Home Past Medical History - Provider Review Nursing Documentation Reviewed: Yes - Past History Past History: No Previous - Infectious Disease Hx of Infectious Diseases: None - Tetanus Immunization Tetanus Immunization: Unknown - Cardiac Hx Cardiac Disorders: No - Pulmonary Hx Asthma: Yes - Neurological Hx Alzheimer's Disease: No Hx Migraine: Yes - HEENT Hx HEENT Disorder: No - Renal Hx Renal Disorder: No - Endocrine/Metabolic Hx Endocrine Disorders: No - Hematological/Oncological Hx Blood Disorders: No - Integumentary Hx Dermatological Disorder: No - Musculoskeletal/Rheumatological Hx Musculoskeletal Disorders: Yes Hx Back Pain: Yes Hx Herniated Disk: Yes - Gastrointestinal Hx Gastrointestinal Disorders: No - Genitourinary/Gynecological Hx Genitourinary Disorders: No - Psychiatric Hx Anxiety: Yes Hx Depression: Yes Hx Panic Disorder: Yes Hx Substance Use: No - Surgical History Hx Section: Yes (X2(1996,2005)) Hx Tubal Ligation: Yes - Anesthesia Hx Anesthesia: Yes Hx Anesthesia Reactions: No Hx Malignant Hyperthermia: No - Suicidal Assessment Feels Threatened In Home Enviroment: No Family/Social History - Physician Review Nursing Documentation Reviewed: Yes Family/Social History: Unknown Family HX Smoking Status: Never Smoked Hx Alcohol Use: No Hx Substance Use: No Hx Substance Use Treatment: No Allergies/Home Meds Allergies/Adverse Reactions: Allergies seasonal Allergy (Mild, Uncoded 04/27/18 04:56) CONGESTION Home Medications: Home Meds Medication Instructions Recorded Confirmed RX: Amitriptyline [Elavil] 100 mg PO BID 09/15/16 06/22/18 RX: Omeprazole 40 mg PO DAILY 09/15/16 06/22/18 RX: Trazodone HCl 150 mg PO HS 09/15/16 06/22/18 Review of Systems - Physician Review All systems were reviewed & negative as marked: Yes - Review of Systems Constitutional: absent: Fevers Respiratory: SOB, Cough Cardiovascular: absent: Chest Pain Gastrointestinal: absent: Abdominal Pain, Diarrhea, Nausea, Vomiting Genitourinary Female: absent: Dysuria Musculoskeletal: absent: Back Pain, Neck Pain Skin: absent: Rash Neurological: absent: Headache, Dizziness Physical Exam Vital Signs Reviewed: Yes Vital Signs Temp Pulse Resp BP Pulse Ox 06/22/18 15:45 98.5 F 101 H 20 119/79 98 Temperature: Afebrile Blood Pressure: Normal Pulse: Tachycardic Respiratory Rate: Normal Appearance: Positive for: Non-Toxic, Comfortable, Other (Morbidly-obese) Pain Distress: None Mental Status: Positive for: Alert and Oriented X 3 - Systems Exam Head: Present: Atraumatic, Normocephalic Pupils: Present: PERRL Extroacular Muscles: Present: EOMI Conjunctiva: Present: Normal Respiratory/Chest: Present: Good Air Exchange, Wheezes. No: Respiratory Distress, Accessory Muscle Use Cardiovascular: Present: Regular Rate and Rhythm, Normal S1, S2. No: Murmurs Abdomen: No: Tenderness, Distention, Peritoneal Signs Upper Extremity: Present: Normal Inspection. No: Cyanosis, Edema Lower Extremity: Present: Normal Inspection. No: Edema Neurological: Present: GCS=15, CN II-XII Intact, Speech Normal Skin: Present: Warm, Dry, Normal Color. No: Rashes Psychiatric: Present: Alert, Oriented x 3, Normal Insight, Normal Concentration Medical Decision Making ED Course and Treatment: 06/22/18 15:48 Impression: 42 year old female presents to the Emergency department complaining of cough and congestion. Plan: -- Labs -- Chest X-ray -- Albuterol -- Solumedrol -- Infleunza -- Rapid Strep -- Urinalysis -- Reassess and disposition Prior Visits: Notes and results from previous visits were reviewed. Progress Notes: 06/25/18 21:[address] wiley. ?infiltrate on cxr anbitiocis given. - RAD Interpretation Radiology Orders: 06/22/18 15:49 CHEST TWO VIEWS (PA/LAT) [RAD] Stat - Medication Orders Current Medication Orders: Albuterol/Ipratropium (Duoneb 3 Mg/0.5 Mg (3 Ml) Ud) 3 ml IH Q15M EDNA Stop: 06/22/18 16:31 Methylprednisolone (Solu-Medrol) 125 mg IVP STAT STA Stop: 06/22/18 15:49 - Scribe Statement The provider has reviewed the documentation as recorded by the Scribe Gela Sheehan. All medical record entries made by the [place] were at my direction and personally dictated by me. I have reviewed the chart and agree that the record accurately reflects my personal performance of the history, physical exam, medical decision making, and the department course for this patient. I have also personally directed, reviewed, and agree with the discharge instructions and disposition. Disposition/Present on Arrival - Present on Arrival Any Indicators Present on Arrival: No History of DVT/PE: No History of Uncontrolled Diabetes: No Urinary Catheter: No History of Decub. Ulcer: No History Surgical Site Infection Following: None - Disposition Have Diagnosis and Disposition been Completed?: Yes Diagnosis: Asthma Disposition: HOSPITALIZED Disposition Time: 16:30 Condition: STABLE
[2018-06-22 16:26] LABS: INR 1.01; PROTHROMBIN TIME 11.5 SECONDS (9.4-12.5)
[2018-06-22 16:32] LABS: BASO # 0.02 K/mm3 (0.0-2.0); BASO % 0.2 % (0.0-3.0); EOS # 0.5 (0.0-0.7); EOS % 5.5 % (1.5-5.0); GRAN # 5.34 (1.4-6.5); HEMOGLOBIN 9.9 g/dL (12.0-16.0); LYMPH # 1.8 (1.2-3.4); MEAN CELL VOLUME 67.8 fl (80.0-105.0); MEAN CORPUSCULAR HEMOGLOBIN 18.4 pg (25.0-35.0); MEAN CORPUSCULAR HGB CONC 27.2 g/dl (31.0-37.0); MEAN PLATELET VOLUME 8.5 fl (7.0-11.0); MONO # 0.7 (0.1-0.6); MONO % 8.3 % (1.0-6.0); RBC 5.37 10^6/uL (3.5-6.1); RED CELL DISTRIBUTION WIDTH 20.7 % (11.5-14.5); WHITE BLOOD COUNT 8.4 10^3/uL (4.5-11.0)
[2018-06-22 16:33] LABS: ALB/GLOB RATIO 1.1 (1.1-1.8); ALBUMIN 3.5 g/dL (3.0-4.8); ALT/SGPT 25 U/L (7-56); AST/SGOT 26 U/L (14-36); BLOOD UREA NITROGEN 13 mg/dL (7-21); CALCIUM 8.6 mg/dL (8.4-10.5); GFR NON-AFRICAN AMERICAN > 60; LIPASE 27 U/L (23-300)
[2018-06-22] MEDS ORDERED: Potassium Chloride 20 mEq ER Tab PO STA (16:34)
[2018-06-22 17:17] LABS: URINE BILIRUBIN NEGATIVE (NEGATIVE); URINE BLOOD NEGATIVE (NEGATIVE); URINE GLUCOSE (UA) NEGATIVE (NEGATIVE); URINE LEUKOCYTE ESTERASE MODERATE Leu/uL (NEGATIVE); URINE PROTEIN NEGATIVE mg/dL (<30 mg/dL); URINE UROBILINOGEN 0.2 E.U./dL (<1 E.U./dL)
[2018-06-22 17:18] LABS: URINE APPEARANCE SLIGHT-CLOUDY (CLEAR); URINE COLOR YELLOW (YELLOW)
[2018-06-22 17:25] LABS: URINE AMORPHOUS SEDIMENT TRACE; URINE BACTERIA TRACE (NEG); URINE RBC 0 - 2 /hpf (0-2); URINE WBC 0 - 2 /hpf (0-6)
[2018-06-22] MEDS ORDERED: levoFLOXacin 500 mg in D5W 500 MG/100 ML BAG IVPB STA (19:53)
[2018-06-22] MEDS ORDERED: Albuterol-Ipratrop 3 mg / 0.5 (3 ml) UD IH STA (19:53)
[2018-06-22] MEDS ORDERED: guaiFENesin DM 100 mg-10 mg/5 ml UD PO PRN (20:51)
[2018-06-22] MEDS ORDERED: Magnesium Sulfate 1 gm in D5W 1 GM/100 ML BAG IVPB ONE (20:51)
[2018-06-22] MEDS ORDERED: Albuterol-Ipratrop 3 mg / 0.5 (3 ml) UD IH PRN (20:51)
--- NOTE | 2018-06-22 21:15 | CP.PCM.HP ---
<Devika Kelly - Last Filed: 06/23/18 04:10> History of Present Illness - History of Present Illness History of Present Illness: Devika Kelly, PGY1 Hospital H&P This is a 42 year old female with PMH of anxiety, depression, VENKATA, obesity, panic attacks, pavan's disease and asthma presenting to the ED for 2 day history of shortness of breath and abdominal cramps. Patients states that SOB s tarted one week ago when she developed cold symptoms of productive cough with yellow sputum, runny nose and congestion. Abdominal cramps began Friday morning at 6am and worsened throughout the day which brought her to the ED. She states she has had similar symptoms in the past but SOB and abdominal cramps are usually mild and resolve within a few hours. She denies ever being hospitalized for asthma exacerbation or any history of intubations. She states she has been using albuterol inhaler 4-5 times per day and ventolin 4-5 times per day over the last few days for SOB. Per patient, she finished course of prednisone taper last week for asthma. She admits to generalized abdominal cramps, SOB and nausea. She denies CP, palpitations, fevers, vomiting, headaches, urinary complaints, numbness, tingling, swelling, diarrhea, constipation, hematochezia, melena, recent travel, trauma and lifestyle changes. 12 point ROS noted here, otherwise unremarkable. PMD: Dr. Latif PMH: anxiety, depression, VENKATA, obesity, panic attacks, pavan's disease and asthma SH: denies smoking, drinking and drug use Sx: x, tubal ligation FH: Mother had anxiety disorder, HLD. Father had DM. Grandmother had unspecified stomach cancer All: seasonal allergies Meds: singulair, zyrtec, ventolin, elavil, trazodone, gabapentin [facility]: [facility] Present on Admission - Present on Admission Any Indicators Present on Admission: No Past Patient History - Infectious Disease Hx of Infectious Diseases: None - Tetanus Immunizations Tetanus Immunization: Unknown - Past Medical History & Family History Past Medical History?: Yes - Past Social History Smoking Status: Never Smoked - CARDIAC Hx Cardiac Disorders: No - PULMONARY Hx Asthma: Yes - NEUROLOGICAL Hx Alzheimer's Disease: No Hx Migraine: Yes - HEENT Hx HEENT Problems: No - RENAL Hx Chronic Kidney Disease: No - ENDOCRINE/METABOLIC Hx Endocrine Disorders: No - HEMATOLOGICAL/ONCOLOGICAL Hx Blood Disorders: No - INTEGUMENTARY Hx Dermatological Problems: No - MUSCULOSKELETAL/RHEUMATOLOGICAL Hx Musculoskeletal Disorders: Yes Hx Back Pain: Yes Hx Herniated Disk: Yes - GASTROINTESTINAL Hx Gastrointestinal Disorders: No - GENITOURINARY/GYNECOLOGICAL Hx Genitourinary Disorders: No - PSYCHIATRIC Hx Anxiety: Yes Hx Depression: Yes Hx Panic Symptoms: Yes Hx Substance Use: No - SURGICAL HISTORY Hx Section: Yes (X2(1996,2005)) Hx Tubal Ligation: Yes - ANESTHESIA Hx Anesthesia: Yes Hx Anesthesia Reactions: No Hx Malignant Hyperthermia: No Meds Allergies/Adverse Reactions: Allergies Allergy/AdvReac Type Severity Reaction Status Date / Time seasonal Allergy Mild CONGESTION Uncoded 04/27/18 04:56 Physical Exam - Constitutional Appears: No Acute Distress - Head Exam Head Exam: ATRAUMATIC, NORMAL INSPECTION - Eye Exam Eye Exam: EOMI Pupil Exam: PERRL - ENT Exam ENT Exam: Mucous Membranes Moist - Respiratory Exam Respiratory Exam: NORMAL BREATHING PATTERN. absent: Accessory Muscle Use, Respiratory Distress Additional comments: minimal wheezing appreciated in B/L lung walker - Cardiovascular Exam Cardiovascular Exam: REGULAR RHYTHM, +S1, +S2 - GI/Abdominal Exam GI & Abdominal Exam: Normal Bowel Sounds, Soft. absent: Firm, Guarding Additional comments: globular abdomen, abdominal striae noted B/L. Tenderness appreciated in the lower central abdominal area to deep palpation. - Extremities Exam Extremities exam: Positive for: normal inspection, pedal pulses present. Negative for: calf tenderness - Back Exam Back exam: NORMAL INSPECTION. absent: CVA tenderness (L), CVA tenderness (R) - Neurological Exam Neurological exam: Alert, Oriented x3 - Skin Skin Exam: Normal Color, Warm Results - Vital Signs Recent Vital Signs: Last Vital Signs Temp 98.5 F 06/22/18 15:45 Pulse 91 H 06/22/18 19:21 Resp 18 06/22/18 19:21 BP 116/71 06/22/18 19:21 Pulse Ox 98 06/22/18 19:21 - Labs Result Diagrams: 06/22/18 16:12 06/22/18 22:25 Labs: Laboratory Results - last 24 hr 06/22/18 06/22/18 06/22/18 16:00 16:12 16:12 WBC 8.4 RBC 5.37 Hgb 9.9 L Hct 36.4 MCV 67.8 L MCH 18.4 L MCHC 27.2 L RDW 20.7 H Plt Count 560 H MPV 8.5 Gran % 64.0 Lymph % (Auto) 22.0 Catron % (Auto) 8.3 H Eos % (Auto) 5.5 H Baso % (Auto) 0.2 Gran # 5.34 Lymph # (Auto) 1.8 Catron # (Auto) 0.7 H Eos # (Auto) 0.5 Baso # (Auto) 0.02 PT 11.5 INR 1.01 APTT 26.0 Sodium Potassium Chloride Carbon Dioxide Anion Gap BUN Creatinine Est GFR ( Amer) Est GFR (Non-Af Amer) Random Glucose Calcium Magnesium Total Bilirubin AST ALT Alkaline Phosphatase Total Protein Albumin Globulin Albumin/Globulin Ratio Lipase Urine Color Urine Appearance Urine pH Ur Specific Hubertus Urine Protein Urine Glucose (UA) Urine Ketones Urine Blood Urine Nitrate Urine Bilirubin Urine Urobilinogen Ur Leukocyte Esterase Urine RBC Urine WBC Ur Epithelial Cells Amorphous Sediment Urine Bacteria Influenza Typ A,B (EIA) Negative for flu a/b Grp A Beta Strep Ag 06/22/18 06/22/18 06/22/18 16:12 17:12 19:30 WBC RBC Hgb Hct MCV MCH MCHC RDW Plt Count MPV Gran % Lymph % (Auto) Catron % (Auto) Eos % (Auto) Baso % (Auto) Gran # Lymph # (Auto) Catron # (Auto) Eos # (Auto) Baso # (Auto) PT INR APTT Sodium 137 Potassium 2.9 L* Chloride 101 Carbon Dioxide 30 Anion Gap 9 L BUN 13 Creatinine 0.7 Est GFR ( Amer) > 60 Est GFR (Non-Af Amer) > 60 Random Glucose 127 H Calcium 8.6 Magnesium 1.6 L Total Bilirubin 0.6 AST 26 ALT 25 Alkaline Phosphatase 87 Total Protein 6.6 Albumin 3.5 Globulin 3.1 Albumin/Globulin Ratio 1.1 Lipase 27 Urine Color Yellow Urine Appearance Slight-cloudy Urine pH 6.0 Ur Specific Hubertus 1.025 Urine Protein Negative Urine Glucose (UA) Negative Urine Ketones Negative Urine Blood Negative Urine Nitrate Negative Urine Bilirubin Negative Urine Urobilinogen 0.2 Ur Leukocyte Esterase Moderate H Urine RBC 0 - 2 Urine WBC 0 - 2 Ur Epithelial Cells 1 - 3 Amorphous Sediment Trace Urine Bacteria Trace Influenza Typ A,B (EIA) Grp A Beta Strep Ag Negative Assessment & Plan - Assessment and Plan (Free Text) Assessment: This is a 42 year old female with PMH of anxiety, depression, VENKATA, obesity, panic attacks, pavan's disease and asthma presenting to the ED for 2 day history of shortness of breath and abdominal cramps. Plan: Asthma exacerbation -ABG pending -CXR shows possible LLB infiltrate, f/u official read -duonebs roxie and prn -levaquin -solumedrol 40mg q12 IVP -flonase -robitussin -singulaire -throat, urine culture pending -procalc pending Abdominal pain -unclear etiology, possibly 2/2 productive cough -Abd US pending -lipase pending Hypokalemia -repleted, f/u labs Hypomagnesemia -repleted, f/u labs Hx of anxiety, depression -continue trazodone, amitriptyline, gabapentin -confirm doses with [facility] PPX with protonix and lovenox HHD Patient seen and case discussed with attending, Dr. Rubio <Neena Rubio - Last Filed: 06/23/18 04:38> Results - Vital Signs Recent Vital Signs: Last Vital Signs Temp 98.5 F 06/22/18 15:45 Pulse 90 06/23/18 01:33 Resp 18 06/23/18 00:57 BP 116/71 06/22/18 19:21 Pulse Ox 97 06/22/18 20:46 - Labs Result Diagrams: 06/22/18 16:12 06/22/18 22:25 Labs: Laboratory Results - last 24 hr 06/22/18 06/22/18 06/22/18 16:00 16:12 16:12 WBC 8.4 RBC 5.37 Hgb 9.9 L Hct 36.4 MCV 67.8 L MCH 18.4 L MCHC 27.2 L RDW 20.7 H Plt Count 560 H MPV 8.5 Gran % 64.0 Lymph % (Auto) 22.0 Catron % (Auto) 8.3 H Eos % (Auto) 5.5 H Baso % (Auto) 0.2 Gran # 5.34 Lymph # (Auto) 1.8 Catron # (Auto) 0.7 H Eos # (Auto) 0.5 Baso # (Auto) 0.02 PT 11.5 INR 1.01 APTT 26.0 Sodium Potassium Chloride Carbon Dioxide Anion Gap BUN Creatinine Est GFR ( Amer) Est GFR (Non-Af Amer) Random Glucose Calcium Magnesium Total Bilirubin AST ALT Alkaline Phosphatase Total Protein Albumin Globulin Albumin/Globulin Ratio Lipase Urine Color Urine Appearance Urine pH Ur Specific Hubertus Urine Protein Urine Glucose (UA) Urine Ketones Urine Blood Urine Nitrate Urine Bilirubin Urine Urobilinogen Ur Leukocyte Esterase Urine RBC Urine WBC Ur Epithelial Cells Amorphous Sediment Urine Bacteria Influenza Typ A,B (EIA) Negative for flu a/b Grp A Beta Strep Ag 06/22/18 06/22/18 06/22/18 16:12 17:12 19:30 WBC RBC Hgb Hct MCV MCH MCHC RDW Plt Count MPV Gran % Lymph % (Auto) Catron % (Auto) Eos % (Auto) Baso % (Auto) Gran # Lymph # (Auto) Catron # (Auto) Eos # (Auto) Baso # (Auto) PT INR APTT Sodium 137 Potassium 2.9 L* Chloride 101 Carbon Dioxide 30 Anion Gap 9 L BUN 13 Creatinine 0.7 Est GFR ( Amer) > 60 Est GFR (Non-Af Amer) > 60 Random Glucose 127 H Calcium 8.6 Magnesium 1.6 L Total Bilirubin 0.6 AST 26 ALT 25 Alkaline Phosphatase 87 Total Protein 6.6 Albumin 3.5 Globulin 3.1 Albumin/Globulin Ratio 1.1 Lipase 27 Urine Color Yellow Urine Appearance Slight-cloudy Urine pH 6.0 Ur Specific Hubertus 1.025 Urine Protein Negative Urine Glucose (UA) Negative Urine Ketones Negative Urine Blood Negative Urine Nitrate Negative Urine Bilirubin Negative Urine Urobilinogen 0.2 Ur Leukocyte Esterase Moderate H Urine RBC 0 - 2 Urine WBC 0 - 2 Ur Epithelial Cells 1 - 3 Amorphous Sediment Trace Urine Bacteria Trace Influenza Typ A,B (EIA) Grp A Beta Strep Ag Negative 06/22/18 22:25 WBC RBC Hgb Hct MCV MCH MCHC RDW Plt Count MPV Gran % Lymph % (Auto) Catron % (Auto) Eos % (Auto) Baso % (Auto) Gran # Lymph # (Auto) Catron # (Auto) Eos # (Auto) Baso # (Auto) PT INR APTT Sodium 136 Potassium 4.4 Chloride 103 Carbon Dioxide 26 Anion Gap 11 BUN 12 Creatinine 0.6 L Est GFR ( Amer) > 60 Est GFR (Non-Af Amer) > 60 Random Glucose 195 H Calcium 8.7 Magnesium 1.6 L Total Bilirubin AST ALT Alkaline Phosphatase Total Protein Albumin Globulin Albumin/Globulin Ratio Lipase Urine Color Urine Appearance Urine pH Ur Specific Hubertus Urine Protein Urine Glucose (UA) Urine Ketones Urine Blood Urine Nitrate Urine Bilirubin Urine Urobilinogen Ur Leukocyte Esterase Urine RBC Urine WBC Ur Epithelial Cells Amorphous Sediment Urine Bacteria Influenza Typ A,B (EIA) Grp A Beta Strep Ag Attending/Attestation - Attestation I have personally seen and examined this patient.: Yes I have fully participated in the care of the patient.: Yes I have reviewed all pertinent clinical information: Yes Notes (Text): 06/23/18 04:34 Patient was seen when she was in the ER in bed # 19. Agree with history,physical examination,assessment and plan.
[2018-06-22] MEDS ORDERED: Enoxaparin 40 mg Syringe SC SCH (22:00)
[2018-06-22 22:50] LABS: BLOOD UREA NITROGEN 12 mg/dL (7-21); GFR NON-AFRICAN AMERICAN > 60
[2018-06-22 22:51] LABS: CALCIUM 8.7 mg/dL (8.4-10.5)
[2018-06-23 01:04] VITALS: BMI 41.5
[2018-06-23] MEDS: Albuterol-Ipratrop 3 mg / 0.5 (3 ml) UD IH SCH ×4 (01:32→19:57)
[2018-06-23] MEDS: Pantoprazole 40 mg EC Tab PO SCH (05:19)
[2018-06-23 06:53] LABS: GRAN # 9.02 (1.4-6.5); GRAN % 88.7 % (50.0-68.0); HEMOGLOBIN 10.2 g/dL (12.0-16.0); LYMPH # 0.9 (1.2-3.4); LYMPH % 8.7 % (22.0-35.0); MEAN CELL VOLUME 66.7 fl (80.0-105.0); MEAN CORPUSCULAR HEMOGLOBIN 18.7 pg (25.0-35.0); MEAN PLATELET VOLUME 8.5 fl (7.0-11.0); MONO # 0.3 (0.1-0.6); MONO % 2.6 % (1.0-6.0); RBC 5.46 10^6/uL (3.5-6.1); RED CELL DISTRIBUTION WIDTH 20.7 % (11.5-14.5); WHITE BLOOD COUNT 10.2 10^3/uL (4.5-11.0)
--- NOTE | 2018-06-23 08:14 | RAD ---
Date of service: 06/22/2018 HISTORY: asthma COMPARISON: 02/20/2018 TECHNIQUE: Chest PA and lateral FINDINGS: LUNGS: No active pulmonary disease. PLEURA: No significant pleural effusion identified. No pneumothorax apparent. CARDIOVASCULAR: No aortic atherosclerotic calcification present. Normal cardiac size. No pulmonary vascular congestion. OSSEOUS STRUCTURES: No significant abnormalities. VISUALIZED UPPER ABDOMEN: Normal. OTHER FINDINGS: None. IMPRESSION: No active disease.
[2018-06-23 08:15] LABS: ALB/GLOB RATIO 1.1 (1.1-1.8); ALBUMIN 3.5 g/dL (3.0-4.8); ALT/SGPT 19 U/L (7-56); AST/SGOT 31 U/L (14-36); BLOOD UREA NITROGEN 10 mg/dL (7-21); CALCIUM 8.9 mg/dL (8.4-10.5); GFR NON-AFRICAN AMERICAN > 60; LIPASE < 10 U/L (23-300)
[2018-06-23] MEDS: Enoxaparin 40 mg Syringe SC SCH (09:23)
[2018-06-23] MEDS: MethylPREDNISolone 40 mg Vial IVP SCH ×2 (09:25→21:12)
[2018-06-23] MEDS: Fluticasone Nasal 50 mcg/Spray NS SCH (09:25)
[2018-06-23] MEDS ORDERED: levoFLOXacin 500 mg in D5W 500 MG/100 ML BAG IVPB SCH (10:00)
[2018-06-23] MEDS ORDERED: Sodium Chloride 0.9% 100 ML IV SCH (10:30)
[2018-06-23] MEDS ORDERED: Sodium Chloride 0.9% 1,000 ML IV SCH (11:45)
--- NOTE | 2018-06-23 12:08 | US ---
Date of service: 06/23/2018 HISTORY: right sided abdominal pain, non specified COMPARISON: 10/17/2017. TECHNIQUE: Sonographic evaluation of the abdomen. FINDINGS: LIVER: Measures 21.4 cm. There is diffuse increased echogenicity of the liver parenchyma. No mass. No intrahepatic bile duct dilatation. GALLBLADDER: There are no gallstones, wall thickening or pericholecystic fluid. The sonographic Mccracken's sign is negative. Common bile duct measures 5.0 mm. No stones. No dilatation. PANCREAS: Unremarkable as visualized. No mass. No ductal dilatation. RIGHT KIDNEY: Measures 12.3cm. Normal echogenicity. No calculus, mass, or hydronephrosis. LEFT KIDNEY: Measures 12.2cm. Normal echogenicity. No calculus, mass, or hydronephrosis. SPLEEN: Normal in size and contour. No mass. AORTA: No aneurysmal dilatation. IVC: Unremarkable. OTHER FINDINGS: None. IMPRESSION: Mild hepatomegaly. Diffuse increased echogenicity in the liver may reflect hepatic steatosis however parenchymal infectious/ inflammatory etiologies cannot be entirely excluded. Clinical and laboratory correlation is advised. No cholelithiasis or biliary dilatation.
--- NOTE | 2018-06-23 12:52 | CP.PCM.PN ---
Subjective - Date & Time of Evaluation Date of Evaluation: 06/23/18 Time of Evaluation: 08:05 - Subjective Subjective: Internal medicine progress note Dr. Ortez Patient seen and examined at bedside this am. NAEO per nursing patient resting cofortably in bed denies SOB. Patient endorses cough productive of yellow sputum and night sweats but denies f/c, n/v CP, abdominal pain and extremity pain/ weakness Objective - Vital Signs/Intake and Output Vital Signs (last 24 hours): Temp Pulse Resp BP Pulse Ox 97.3 F L 106 H 19 142/89 96 06/23/18 08:55 06/23/18 08:55 06/23/18 08:55 06/23/18 08:55 06/23/18 08:55 - Medications Medications: Current Medications Albuterol/Ipratropium (Duoneb 3 Mg/0.5 Mg (3 Ml) Ud) 3 ml IH Q2H PRN PRN Reason: Shortness of Breath Albuterol/Ipratropium (Duoneb 3 Mg/0.5 Mg (3 Ml) Ud) 3 ml IH [id number] ROXIE Last Admin: 06/23/18 07:47 Dose: Not Given Amitriptyline HCl (Elavil) 100 mg PO HS [facility] Last Admin: 06/22/18 23:01 Dose: 100 mg Amitriptyline HCl (Elavil) 50 mg PO DAILY@1200 ROXIE Last Admin: 06/23/18 12:07 Dose: 50 mg Amitriptyline HCl (Elavil) 50 mg PO DAILY@0800 ROXIE Enoxaparin Sodium (Lovenox) 40 mg SC DAILY ROXIE; Protocol Last Admin: 06/23/18 09:23 Dose: 40 mg Fluticasone Propionate (Flonase) 1 actuation NS DAILY [facility] Last Admin: 06/23/18 09:25 Dose: 1 spray Gabapentin (Neurontin) 100 mg PO DAILY [facility]; Protocol Last Admin: 06/23/18 09:23 Dose: 100 mg Guaifenesin/Dextromethorphan (Robitussin Dm) 5 ml PO Q4H PRN PRN Reason: Cough Sodium Chloride (Sodium Chloride 0.9%) 1,000 mls @ 100 mls/hr IV .Q10H ROXIE Stop: 06/23/18 21:44 Last Admin: 06/23/18 12:14 Dose: 100 mls/hr Methylprednisolone (Solu-Medrol) 40 mg IVP Q12 [facility] Last Admin: 06/23/18 09:25 Dose: 40 mg Montelukast Sodium (Singulair) 10 mg PO HS [facility] Last Admin: 06/22/18 23:01 Dose: 10 mg Pantoprazole Sodium (Protonix Ec Tab) 40 mg PO 0600 [facility] Last Admin: 06/23/18 05:19 Dose: 40 mg Trazodone HCl (Desyrel) 100 mg PO [facility] Last Admin: 06/22/18 23:01 Dose: 100 mg - Labs Labs: 06/23/18 06:00 06/23/18 06:00 PT 11.5 SECONDS (9.4-12.5) 06/22/18 16:12 INR 1.01 06/22/18 16:12 APTT 26.0 Seconds (25.1-36.5) 06/22/18 16:12 - Constitutional Appears: Well, Non-toxic, No Acute Distress - Head Exam Head Exam: ATRAUMATIC, NORMOCEPHALIC - Eye Exam Eye Exam: EOMI - ENT Exam ENT Exam: Mucous Membranes Moist - Respiratory Exam Respiratory Exam: NORMAL BREATHING PATTERN Additional comments: no egophony no tactile fremitus - Cardiovascular Exam Cardiovascular Exam: REGULAR RHYTHM - GI/Abdominal Exam GI & Abdominal Exam: Soft. absent: Distended, Guarding, Tenderness - Neurological Exam Neurological Exam: Alert, Awake, Oriented x3 - Psychiatric Exam Psychiatric exam: Normal Affect, Normal Mood - Skin Skin Exam: Dry, Intact, Normal Color, Warm Assessment and Plan - Assessment and Plan (Free Text) Assessment: 42 yr old female with asthma exacerbation possible pneumonia Plan: Asthma exacerbation -ABG pending -CXR no infiltrates - CT chest to r/o PNA -duonebs roxie and prn -levaquin -solumedrol 40mg q12 IVP -flonase -robitussin -singulair -throat, urine culture pending -procal pending Abdominal pain -unclear etiology, possibly 2/2 productive cough -Abd US pending -lipase negative Hx of anxiety, depression -continue trazodone, amitriptyline, gabapentin PPX with protonix and lovenox HHD patient seen and discussed with Dr. Reeder
--- NOTE | 2018-06-23 14:11 | CT ---
Date of service: 06/23/2018 PROCEDURE: CT Chest without contrast HISTORY: ro pna COMPARISON: None available. TECHNIQUE: Contiguous axial images were obtained through the chest without intravenous contrast enhancement. Sagittal and coronal reconstructions were performed. Radiation dose: Total exam DLP = 1240.53 mGy-cm. This CT exam was performed using one or more of the following dose reduction techniques: Automated exposure control, adjustment of the mA and/or kV according to patient size, and/or use of iterative reconstruction technique. FINDINGS: LUNGS: There is some linear scarring in the right middle lobe. There is no evidence of pneumonia MEDIASTINUM: Unremarkable thoracic aorta. No aneurysm. Normal sized heart. Main pulmonary artery unremarkable. No vascular congestion. No lymphadenopathy. No aortic atherosclerotic calcification. PLEURA: No pleural fluid. No pneumothorax. BONES: No fracture. No destructive lesion. UPPER ABDOMEN: Grossly unremarkable. OTHER FINDINGS: None. IMPRESSION: There is some linear scarring in the right middle lobe. There is no evidence of pneumonia
--- NOTE | 2018-06-23 14:17 | CP.PCM.CON ---
History of Present Illness - History of Present Illness History of Present Illness: PULMONARY CONSULT NTOE HPI Patient is 42yo female with PMHx anxiety, depression, VENKATA, Obesity, panic attacks, and asthma presented to the ER with 2 day history fo SOB, and abdominal cramps. Ptstates she has multiple ER visits in the past SOB and asthma exacerbations. Pt is Ventolin and Nebulizers at home and Singulair. Pt denies smoking. Pt denies fever, chills, cough, chest pain palpitations. No other constitutional symptoms. PMH: anxiety, depression, VENKATA, obesity, panic attacks, pavan's disease and asthma SH: denies smoking, drinking and drug use Sx: x, tubal ligation FH: Anxiety disorder, HLD, DM. All: seasonal allergies Meds: singulair, zyrtec, ventolin, elavil, trazodone, gabapentin Review of Systems - Review of Systems Review of Systems: as per HPI Past Patient History - Infectious Disease Hx of Infectious Diseases: None - Tetanus Immunizations Tetanus Immunization: Unknown - Past Medical History & Family History Past Medical History?: Yes - Past Social History Smoking Status: Never Smoked - CARDIAC Hx Cardiac Disorders: No - PULMONARY Hx Asthma: Yes - NEUROLOGICAL Hx Alzheimer's Disease: No Hx Migraine: Yes - HEENT Hx HEENT Problems: No - RENAL Hx Chronic Kidney Disease: No - ENDOCRINE/METABOLIC Hx Endocrine Disorders: No - HEMATOLOGICAL/ONCOLOGICAL Hx Blood Disorders: No - INTEGUMENTARY Hx Dermatological Problems: No - MUSCULOSKELETAL/RHEUMATOLOGICAL Hx Musculoskeletal Disorders: Yes Hx Back Pain: Yes Hx Herniated Disk: Yes - GASTROINTESTINAL Hx Gastrointestinal Disorders: No - GENITOURINARY/GYNECOLOGICAL Hx Genitourinary Disorders: No - PSYCHIATRIC Hx Anxiety: Yes Hx Depression: Yes Hx Panic Symptoms: Yes Hx Substance Use: No - SURGICAL HISTORY Hx Section: Yes (X2(1996,2005)) Hx Tubal Ligation: Yes - ANESTHESIA Hx Anesthesia: Yes Hx Anesthesia Reactions: No Hx Malignant Hyperthermia: No Meds Allergies/Adverse Reactions: Allergies Allergy/AdvReac Type Severity Reaction Status Date / Time seasonal Allergy Mild CONGESTION Uncoded 04/27/18 04:56 - Medications Medications: Current Medications Albuterol/Ipratropium (Duoneb 3 Mg/0.5 Mg (3 Ml) Ud) 3 ml IH Q2H PRN PRN Reason: Shortness of Breath Albuterol/Ipratropium (Duoneb 3 Mg/0.5 Mg (3 Ml) Ud) 3 ml IH [id number] [facility] Last Admin: 06/23/18 13:28 Dose: Not Given Amitriptyline HCl (Elavil) 100 mg PO [facility] Last Admin: 06/22/18 23:01 Dose: 100 mg Amitriptyline HCl (Elavil) 50 mg PO DAILY@1200 [facility] Last Admin: 06/23/18 12:07 Dose: 50 mg Amitriptyline HCl (Elavil) 50 mg PO DAILY@0800 [facility] Clonazepam (Klonopin) 0.5 mg PO BID [facility]; Protocol Enoxaparin Sodium (Lovenox) 40 mg SC DAILY [facility]; Protocol Last Admin: 06/23/18 09:23 Dose: 40 mg Fluticasone Propionate (Flonase) 1 actuation NS DAILY [facility] Last Admin: 06/23/18 09:25 Dose: 1 spray Gabapentin (Neurontin) 100 mg PO DAILY [facility]; Protocol Last Admin: 06/23/18 09:23 Dose: 100 mg Guaifenesin/Dextromethorphan (Robitussin Dm) 5 ml PO Q4H PRN PRN Reason: Cough Sodium Chloride (Sodium Chloride 0.9%) 1,000 mls @ 100 mls/hr IV .Q10H [facility] Stop: 06/23/18 21:44 Last Admin: 06/23/18 12:14 Dose: 100 mls/hr Methylprednisolone (Solu-Medrol) 40 mg IVP Q12 [facility] Last Admin: 06/23/18 09:25 Dose: 40 mg Montelukast Sodium (Singulair) 10 mg PO [facility] Last Admin: 06/22/18 23:01 Dose: 10 mg Pantoprazole Sodium (Protonix Ec Tab) 40 mg PO 0600 [facility] Last Admin: 06/23/18 05:19 Dose: 40 mg Trazodone HCl (Desyrel) 100 mg PO [facility] Last Admin: 06/22/18 23:01 Dose: 100 mg Physical Exam - Constitutional Appears: Non-toxic, No Acute Distress - Head Exam Head Exam: NORMAL INSPECTION - Eye Exam Eye Exam: Normal appearance - ENT Exam ENT Exam: Mucous Membranes Moist - Neck Exam Neck exam: Positive for: Full Rom - Respiratory Exam Respiratory Exam: Wheezes, NORMAL BREATHING PATTERN - Cardiovascular Exam Cardiovascular Exam: REGULAR RHYTHM, +S1, +S2 - GI/Abdominal Exam GI & Abdominal Exam: Normal Bowel Sounds, Soft - Extremities Exam Extremities exam: Positive for: normal inspection - Neurological Exam Neurological exam: Alert, Oriented x3 - Psychiatric Exam Psychiatric exam: Anxious - Skin Skin Exam: Normal Color, Warm Results - Vital Signs Recent Vital Signs: Last Vital Signs Temp 97.3 F L 06/23/18 08:55 Pulse 106 H 06/23/18 08:55 Resp 19 06/23/18 08:55 BP 142/89 06/23/18 08:55 Pulse Ox 96 06/23/18 08:55 - Labs Result Diagrams: 06/23/18 06:00 06/23/18 06:00 Labs: Laboratory Results - last 24 hr 06/22/18 06/22/18 06/22/18 15:55 16:00 16:12 WBC 8.4 RBC 5.37 Hgb 9.9 L Hct 36.4 MCV 67.8 L MCH 18.4 L MCHC 27.2 L RDW 20.7 H Plt Count 560 H MPV 8.5 Gran % 64.0 Lymph % (Auto) 22.0 [place] % (Auto) 8.3 H Eos % (Auto) 5.5 H Baso % (Auto) 0.2 Gran # 5.34 Lymph # (Auto) 1.8 [place] # (Auto) 0.7 H Eos # (Auto) 0.5 Baso # (Auto) 0.02 PT INR APTT Sodium Potassium Chloride Carbon Dioxide Anion Gap BUN Creatinine Est GFR ( Amer) Est GFR (Non-Af Amer) Random Glucose Calcium Phosphorus Magnesium Total Bilirubin AST ALT Alkaline Phosphatase Total Protein Albumin Globulin Albumin/Globulin Ratio Lipase Procalcitonin < 0.05 L Urine Color Urine Appearance Urine pH Ur Specific [place] Urine Protein Urine Glucose (UA) Urine Ketones Urine Blood Urine Nitrate Urine Bilirubin Urine Urobilinogen Ur Leukocyte Esterase Urine RBC Urine WBC Ur Epithelial Cells Amorphous Sediment Urine Bacteria Influenza Typ A,B (EIA) Negative for flu a/b Grp A Beta Strep Ag 06/22/18 06/22/18 06/22/18 16:12 16:12 17:12 WBC RBC Hgb Hct MCV MCH MCHC RDW Plt Count MPV Gran % Lymph % (Auto) [place] % (Auto) Eos % (Auto) Baso % (Auto) Gran # Lymph # (Auto) [place] # (Auto) Eos # (Auto) Baso # (Auto) PT 11.5 INR 1.01 APTT 26.0 Sodium 137 Potassium 2.9 L* Chloride 101 Carbon Dioxide 30 Anion Gap 9 L BUN 13 Creatinine 0.7 Est GFR ( Amer) > 60 Est GFR (Non-Af Amer) > 60 Random Glucose 127 H Calcium 8.6 Phosphorus Magnesium 1.6 L Total Bilirubin 0.6 AST 26 ALT 25 Alkaline Phosphatase 87 Total Protein 6.6 Albumin 3.5 Globulin 3.1 Albumin/Globulin Ratio 1.1 Lipase 27 Procalcitonin Urine Color Yellow Urine Appearance Slight-cloudy Urine pH 6.0 Ur Specific [place] 1.025 Urine Protein Negative Urine Glucose (UA) Negative Urine Ketones Negative Urine Blood Negative Urine Nitrate Negative Urine Bilirubin Negative Urine Urobilinogen 0.2 Ur Leukocyte Esterase Moderate H Urine RBC 0 - 2 Urine WBC 0 - 2 Ur Epithelial Cells 1 - 3 Amorphous Sediment Trace Urine Bacteria Trace Influenza Typ A,B (EIA) Grp A Beta Strep Ag 06/22/18 06/22/18 06/23/18 19:30 22:25 06:00 WBC 10.2 D RBC 5.46 Hgb 10.2 L Hct 36.4 MCV 66.7 L MCH 18.7 L MCHC 28.0 L RDW 20.7 H Plt Count 589 H MPV 8.5 Gran % 88.7 H Lymph % (Auto) 8.7 L [place] % (Auto) 2.6 Eos % (Auto) 0.0 L Baso % (Auto) 0.0 Gran # 9.02 H Lymph # (Auto) 0.9 L [place] # (Auto) 0.3 Eos # (Auto) 0.0 Baso # (Auto) 0.00 PT INR APTT Sodium 136 Potassium 4.4 Chloride 103 Carbon Dioxide 26 Anion Gap 11 BUN 12 Creatinine 0.6 L Est GFR ( Amer) > 60 Est GFR (Non-Af Amer) > 60 Random Glucose 195 H Calcium 8.7 Phosphorus Magnesium 1.6 L Total Bilirubin AST ALT Alkaline Phosphatase Total Protein Albumin Globulin Albumin/Globulin Ratio Lipase Procalcitonin Urine Color Urine Appearance Urine pH Ur Specific [place] Urine Protein Urine Glucose (UA) Urine Ketones Urine Blood Urine Nitrate Urine Bilirubin Urine Urobilinogen Ur Leukocyte Esterase Urine RBC Urine WBC Ur Epithelial Cells Amorphous Sediment Urine Bacteria Influenza Typ A,B (EIA) Grp A Beta Strep Ag Negative 06/23/18 06:00 WBC RBC Hgb Hct MCV MCH MCHC RDW Plt Count MPV Gran % Lymph % (Auto) [place] % (Auto) Eos % (Auto) Baso % (Auto) Gran # Lymph # (Auto) [place] # (Auto) Eos # (Auto) Baso # (Auto) PT INR APTT Sodium 135 Potassium 4.5 Chloride 103 Carbon Dioxide 26 Anion Gap 10 BUN 10 Creatinine 0.5 L Est GFR ( Amer) > 60 Est GFR (Non-Af Amer) > 60 Random Glucose 166 H Calcium 8.9 Phosphorus 2.6 Magnesium 2.2 Total Bilirubin 0.6 AST 31 ALT 19 Alkaline Phosphatase 89 Total Protein 6.7 Albumin 3.5 Globulin 3.2 Albumin/Globulin Ratio 1.1 Lipase < 10 L Procalcitonin Urine Color Urine Appearance Urine pH Ur Specific [place] Urine Protein Urine Glucose (UA) Urine Ketones Urine Blood Urine Nitrate Urine Bilirubin Urine Urobilinogen Ur Leukocyte Esterase Urine RBC Urine WBC Ur Epithelial Cells Amorphous Sediment Urine Bacteria Influenza Typ A,B (EIA) Grp A Beta Strep Ag - Imaging and Cardiology Chest x-ray Status: Image reviewed by me, Report reviewed by me Assessment & Plan - Assessment and Plan (Free Text) Assessment: 42yo female with asthma exacerbation - Solumedrol 40mg IV BID - Duonebs PRN - Start Advair 250/50 BID - Singulair 10mg PO daily - Outpatient PFTs - follow up CT chest - DVT ppx - pulmonary will continue to follow
--- NOTE | 2018-06-23 18:52 | CARD ---
APPROVED REPORT Date of service: 06/22/2018 EKG Measurement Heart [id number] <Conclusion> Sinus tachycardia Nonspecific T wave abnormality Abnormal ECG
[2018-06-23] MEDS: Arformoterol 15 mcg/2 ml Inh Sol IH SCH (19:56)
[2018-06-23] MEDS: Budesonide 0.5 mg/2 ml Inhal Susp UD IH SCH (19:57)
[2018-06-23] MEDS ORDERED: Fluticasone-Salmeterol 250-50mcg Diskus IH SCH (22:00)
[2018-06-24] MEDS: Albuterol-Ipratrop 3 mg / 0.5 (3 ml) UD IH SCH ×3 (02:12→13:21)
[2018-06-24] MEDS: Pantoprazole 40 mg EC Tab PO SCH (05:10)
[2018-06-24 06:25] LABS: BASO # 0.01 K/mm3 (0.0-2.0); BASO % 0.1 % (0.0-3.0); GRAN # 7.92 (1.4-6.5); GRAN % 86.5 % (50.0-68.0); HEMOGLOBIN 9.8 g/dL (12.0-16.0); LYMPH # 0.8 (1.2-3.4); LYMPH % 8.2 % (22.0-35.0); MEAN CELL VOLUME 67.4 fl (80.0-105.0); MEAN CORPUSCULAR HEMOGLOBIN 18.4 pg (25.0-35.0); MEAN CORPUSCULAR HGB CONC 27.2 g/dl (31.0-37.0); MEAN PLATELET VOLUME 8.4 fl (7.0-11.0); MONO # 0.5 (0.1-0.6); MONO % 5.2 % (1.0-6.0); RBC 5.34 10^6/uL (3.5-6.1); RED CELL DISTRIBUTION WIDTH 20.6 % (11.5-14.5); WHITE BLOOD COUNT 9.2 10^3/uL (4.5-11.0)
[2018-06-24 07:13] LABS: ALB/GLOB RATIO 1.1 (1.1-1.8); ALBUMIN 3.5 g/dL (3.0-4.8); ALT/SGPT 20 U/L (7-56); AST/SGOT 19 U/L (14-36); BLOOD UREA NITROGEN 9 mg/dL (7-21); CALCIUM 9.1 mg/dL (8.4-10.5); GFR NON-AFRICAN AMERICAN > 60
[2018-06-24] MEDS: Arformoterol 15 mcg/2 ml Inh Sol IH SCH (07:55)
[2018-06-24] MEDS: Budesonide 0.5 mg/2 ml Inhal Susp UD IH SCH (07:56)
[2018-06-24 08:05] VITALS: PULSE 100
[2018-06-24] MEDS: Fluticasone Nasal 50 mcg/Spray NS SCH (09:00)
[2018-06-24] MEDS: Enoxaparin 40 mg Syringe SC SCH (09:01)
--- NOTE | 2018-06-24 16:16 | CP.PCM.PN ---
Subjective - Date & Time of Evaluation Date of Evaluation: 06/24/18 Time of Evaluation: 16:13 - Subjective Subjective: Pt seen and examined. Pt reports to be feeling significantly better. NO SOB. Objective - Vital Signs/Intake and Output Vital Signs (last 24 hours): Temp Pulse Resp BP Pulse Ox 97.3 F L 100 H 20 132/88 95 06/24/18 07:00 06/24/18 07:00 06/24/18 07:00 06/24/18 07:00 06/24/18 07:00 - Medications Medications: Current Medications Albuterol/Ipratropium (Duoneb 3 Mg/0.5 Mg (3 Ml) Ud) 3 ml IH Q2H PRN PRN Reason: Shortness of Breath Last Admin: 06/23/18 17:12 Dose: 3 ml Albuterol/Ipratropium (Duoneb 3 Mg/0.5 Mg (3 Ml) Ud) 3 ml IH [id number] [facility] Last Admin: 06/24/18 13:21 Dose: 3 ml Amitriptyline HCl (Elavil) 100 mg PO HS [facility] Last Admin: 06/23/18 21:11 Dose: 100 mg Amitriptyline HCl (Elavil) 50 mg PO DAILY@1200 [facility] Last Admin: 06/24/18 12:24 Dose: 50 mg Amitriptyline HCl (Elavil) 50 mg PO DAILY@0800 [facility] Last Admin: 06/24/18 08:56 Dose: 50 mg Arformoterol Tartrate (Brovana) 15 mcg IH [id number] [facility] Last Admin: 06/24/18 07:55 Dose: 15 mcg Budesonide (Pulmicort Respules) 0.5 mg IH [id number] [facility] Last Admin: 06/24/18 07:56 Dose: 0.5 mg Clonazepam (Klonopin) 0.5 mg PO BID [facility]; Protocol Last Admin: 06/24/18 09:00 Dose: 0.5 mg Enoxaparin Sodium (Lovenox) 40 mg SC DAILY [facility]; Protocol Last Admin: 06/24/18 09:01 Dose: 40 mg Fluticasone Propionate (Flonase) 1 actuation NS DAILY [facility] Last Admin: 06/24/18 09:00 Dose: 1 spray Gabapentin (Neurontin) 100 mg PO DAILY [facility]; Protocol Last Admin: 06/24/18 09:01 Dose: 100 mg Guaifenesin/Dextromethorphan (Robitussin Dm) 5 ml PO Q4H PRN PRN Reason: Cough Montelukast Sodium (Singulair) 10 mg PO HS [facility] Last Admin: 06/23/18 21:12 Dose: 10 mg Pantoprazole Sodium (Protonix Ec Tab) 40 mg PO 0600 [facility] Last Admin: 06/24/18 05:10 Dose: 40 mg Prednisone (Prednisone Tab) 40 mg PO DAILY [facility] Last Admin: 06/24/18 09:02 Dose: 40 mg Trazodone HCl (Desyrel) 100 mg PO HS [facility] Last Admin: 06/23/18 21:11 Dose: 100 mg - Labs Labs: 06/24/18 05:45 06/24/18 05:45 PT 11.5 SECONDS (9.4-12.5) 06/22/18 16:12 INR 1.01 06/22/18 16:12 APTT 26.0 Seconds (25.1-36.5) 06/22/18 16:12 - Constitutional Appears: Non-toxic, No Acute Distress - Head Exam Head Exam: NORMAL INSPECTION - ENT Exam ENT Exam: Mucous Membranes Moist - Neck Exam Neck Exam: Full ROM - Respiratory Exam Respiratory Exam: Clear to Ausculation Bilateral, NORMAL BREATHING PATTERN - Cardiovascular Exam Cardiovascular Exam: REGULAR RHYTHM, +S1, +S2 - GI/Abdominal Exam GI & Abdominal Exam: Soft, Normal Bowel Sounds - Neurological Exam Neurological Exam: Alert, Awake, Oriented x3 - Psychiatric Exam Psychiatric exam: Normal Affect - Skin Skin Exam: Normal Color, Warm Assessment and Plan - Assessment and Plan (Free Text) Assessment: 42yo female with asthma exacerbation - Prednisone PO taper - Ventolin PRN - Start Advair 250/50 BID - Singulair 10mg PO daily - Outpatient PFTs - Outpatient pulmonary follow up
[2018-06-24 16:37] VITALS: BP 126/88; RESP 18; TEMP 97.4; O2SAT 97
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
--- NOTE | 2018-06-25 09:02 | CP.PCM.PCO ---
Physician Communication Note - Physician Communication Note Physician Communication Note: pt has f/u gonsalo with outp psychiatrist, compliant with meds, no SI/HI/VH/AH
--- NOTE | 2018-06-26 11:48 | PQF ---
PROVIDER RESPONSE TEXT: Severe persistent asthma. REVIEWER QUERY TEXT: Asthma Specificity and Type Asthma is documented in the Medical Record. Please specify the type and severity of asthma and indic ate if this is associated with exacerbation or status asthmaticus. Such as: -- Mild intermittent -- Mild persistent -- Moderate persistent -- Severe persistent -- Exercise induced bronchospasm -- Cough variant asthma -- Other, please specify The patient's Clinical Indicators include: Please see below. Thank you. Query created by: Luna Guan on 06/25/2018 5:38 PM Electronically signed by: Silviano Reeder MD 06/26/2018 11:46 AM
== END 2018-06-24 16:50 | disposition home or self-care (01) | DRG 96 ==
LOC: ED 15:32 → ERH 20:06 → 3RNO 20:54
PROVIDERS: ADMIT Internal Medicine; ATTEND Internal Medicine
DX: J45.51 Severe persistent asthma with (acute) exacerbation (principal); E87.6 Hypokalemia; F41.0 Panic disorder [episodic paroxysmal anxiety]; G47.00 Insomnia, unspecified; G47.33 Obstructive sleep apnea (adult) (pediatric); J00 Acute nasopharyngitis [common cold]; Z98.51 Tubal ligation status; Z98.891 History of uterine scar from previous surgery; Z83.3 Family history of diabetes mellitus; Z80.0 Family history of malignant neoplasm of digestive organs; Z81.8 Family history of other mental and behavioral disorders; E83.42 Hypomagnesemia; R10.9 Unspecified abdominal pain; F41.1 Generalized anxiety disorder; E66.01 Morbid (severe) obesity due to excess calories; Z68.41 Body mass index [BMI] 40.0-44.9, adult; R40.2412 Glasgow coma scale score 13-15, at arrival to emergency department

== ENCOUNTER 2018-07-24 09:18 | Emergency (ER) | payer MEDICAID ==
[2018-07-24 09:18] VITALS: BMI 41.5
--- NOTE | 2018-07-24 10:04 | ED PDOC ---
Arrival/HPI - General Historian: Patient - History of Present Illness Narrative History of Present Illness (Text): 07/24/18 10:09 42 y/o F with PMHx of Asthma, GERD, VENKATA presents to ED with complaints of shortness of breath/wheezing since yesterday. She had been taking her nebulizer treatments as direct, but reports minimal improvement this am. She denies recent travel, sick contacts, recent illness. She reports this episodes feels similar to the previous episode she had about 1 month prior. She also reports abdominal bloating that she's been experiences for the past week. She has been tolerating her diet well, without nausea, vomiting, constipation or diarrhea. She has been taking her PPI as prescribed. She denies fevers, chills, headache, dizziness, chest pain, palpitations, cough, dysuria, hematuria. Time/Duration: Prior to Arrival <Cee Manjarrez - Last Filed: 07/24/18 12:50> <Joesph Olguin DO - Last Filed: 07/24/18 17:34> - General Chief Complaint: Abdominal Pain Past Medical History - Provider Review Nursing Documentation Reviewed: Yes - Past History Past History: No Previous - Infectious Disease Hx of Infectious Diseases: None - Tetanus Immunization Tetanus Immunization: Unknown - Cardiac Hx Cardiac Disorders: No - Pulmonary Hx Asthma: Yes - Neurological Hx Alzheimer's Disease: No Hx Migraine: Yes - HEENT Hx HEENT Disorder: No - Renal Hx Renal Disorder: No - Endocrine/Metabolic Hx Endocrine Disorders: No - Hematological/Oncological Hx Blood Disorders: No - Integumentary Hx Dermatological Disorder: No - Musculoskeletal/Rheumatological Hx Musculoskeletal Disorders: Yes Hx Back Pain: Yes Hx Herniated Disk: Yes - Gastrointestinal Hx Gastrointestinal Disorders: No - Genitourinary/Gynecological Hx Genitourinary Disorders: No - Psychiatric Hx Anxiety: Yes Hx Depression: Yes Hx Panic Disorder: Yes Hx Substance Use: No - Surgical History Hx Section: Yes (X2(1996,2005)) Hx Tubal Ligation: Yes - Anesthesia Hx Anesthesia: Yes Hx Anesthesia Reactions: No Hx Malignant Hyperthermia: No - Suicidal Assessment Feels Threatened In Home Enviroment: No <Cee Manjarrez - Last Filed: 07/24/18 12:50> Family/Social History - Physician Review Nursing Documentation Reviewed: Yes Family/Social History: Unknown Family HX Smoking Status: Never Smoked Hx Alcohol Use: No Hx Substance Use: No Hx Substance Use Treatment: No <Cee Manjarrez - Last Filed: 07/24/18 12:50> Allergies/Home Meds <Cee Manjarrez - Last Filed: 07/24/18 12:50> <Joesph Olguin DO - Last Filed: 07/24/18 17:34> Allergies/Adverse Reactions: Allergies seasonal Allergy (Mild, Uncoded 04/27/18 04:56) CONGESTION Home Medications: Home Meds Medication Instructions Recorded Confirmed Amitriptyline [Elavil] 100 mg PO BID 09/15/16 06/22/18 Omeprazole 40 mg PO DAILY 09/15/16 06/22/18 Trazodone HCl 150 mg PO HS 09/15/16 06/22/18 Review of Systems - Review of Systems Constitutional: Normal Eyes: Normal ENT: Normal Respiratory: SOB, Wheezing Cardiovascular: Normal Gastrointestinal: Other (bloating). absent: Constipation, Diarrhea, Food Intolerance Genitourinary Female: Normal Musculoskeletal: Normal Skin: Normal Neurological: Normal Endocrine: Normal Hemo/Lymphatic: Normal Psychiatric: Normal <Cee Manjarrez - Last Filed: 07/24/18 12:50> Physical Exam Vital Signs Temp Pulse Resp BP Pulse Ox 07/24/18 09:18 97.7 F 98 H 18 118/82 97 Temperature: Afebrile Blood Pressure: Normal Pulse: Regular Respiratory Rate: Normal Appearance: Positive for: Well-Appearing, Non-Toxic, Comfortable Pain Distress: None Mental Status: Positive for: Alert and Oriented X 3 - Systems Exam Head: Present: Atraumatic, Normocephalic Pupils: Present: PERRL Extroacular Muscles: Present: EOMI Conjunctiva: Present: Normal Mouth: Present: Moist Mucous Membranes Neck: Present: Normal Range of Motion Respiratory/Chest: Present: Clear to Auscultation, Good Air Exchange. No: Respiratory Distress, Accessory Muscle Use Cardiovascular: Present: Regular Rate and Rhythm, Normal S1, S2. No: Murmurs Abdomen: Present: Tenderness (RUQ/LUQ to deep palpation. (-) sotelo sign). No: Distention Back: Present: Normal Inspection Upper Extremity: Present: Normal Inspection. No: Cyanosis, Edema Lower Extremity: Present: Normal Inspection. No: Edema Neurological: Present: GCS=15, CN II-XII Intact, Speech Normal Skin: Present: Warm, Dry, Normal Color. No: Rashes Psychiatric: Present: Alert, Oriented x 3, Normal Insight, Normal Concentration <Cee Manjarrez - Last Filed: 07/24/18 12:50> Vital Signs Temp Pulse Resp BP Pulse Ox 07/24/18 09:18 97.7 F 98 H 18 118/82 97 <Joesph Olguin DO - Last Filed: 07/24/18 17:34> Medical Decision Making ED Course and Treatment: 07/24/18 10:25 Impression: 42 y/o F with PMHx of Asthma, GERD presents to ED with complaints of SOB, wheezing and abdominal bloating Differential diagnosis includes but is not limited to: asthma exacerbation GERD Plan: Labs chest xray IV solu-medrol duoneb magnesium rapid flu reassess & dispo Progress Notes: 07/24/18 12:27 Pt re-evaluated. Pt no longer wheezing, bloating has improved with IV steroids. Pt resting comfortably. - RAD Interpretation Narrative RAD Interpretations (Text): 07/24/18 12:06 Chest Xray: IMPRESSION: Borderline cardiomegaly. No focal consolidation. <Cee Manjarrez - Last Filed: 07/24/18 12:50> ED Course and Treatment: 07/24/18 10:41 42 year old female presents to the ED for evaluation of shortness of breath and abdominal distention. In agreement with resident note which contains more details about the patient. Patient seen and evaluated with resident. Came up with plan and treatment together. - RAD Interpretation Radiology Orders: 07/24/18 10:07 CHEST PORTABLE [RAD] Stat - Medication Orders Current Medication Orders: Albuterol/Ipratropium (Duoneb 3 Mg/0.5 Mg (3 Ml) Ud) 3 ml IH Q15M EDNA Stop: 07/24/18 10:46 Magnesium Sulfate (Magnesium Sulfate 2 Gm/50 Ml Water) 2 gm in 50 mls @ 50 mls/hr IVPB ONCE ONE Stop: 07/24/18 11:06 Discontinued Medications Methylprednisolone (Solu-Medrol) 125 mg IVP STAT STA Stop: 07/24/18 10:06 <Joesph Olguin DO - Last Filed: 07/24/18 17:34> - PA / [employer] / Resident Statement LINA has reviewed & agrees with the documentation as recorded. LINA has examined the patient and agrees with the treatment plan. <Cee Manjarrez - Last Filed: 07/24/18 12:50> - PA / [employer]ING [employer] / Resident Statement LINA has reviewed & agrees with the documentation as recorded. LINA has examined the patient and agrees with the treatment plan. - Scribe Statement The provider has reviewed the documentation as recorded by the Scribe Gela Sheehan. All medical record entries made by the Scribe were at my direction and personally dictated by me. I have reviewed the chart and agree that the record accurately reflects my personal performance of the history, physical exam, medical decision making, and the department course for this patient. I have also personally directed, reviewed, and agree with the discharge instructions and disposition. <Joesph Olguin DO - Last Filed: 07/24/18 17:34> Disposition/Present on Arrival - Present on Arrival Any Indicators Present on Arrival: No History of DVT/PE: No History of Uncontrolled Diabetes: No Urinary Catheter: No History of Decub. Ulcer: No History Surgical Site Infection Following: None - Disposition Have Diagnosis and Disposition been Completed?: Yes Disposition Time: 12:50 <Cee Manjarrez - Last Filed: 07/24/18 12:50> - Disposition Disposition Time: 12:00 <Joesph Olguin DO - Last Filed: 07/24/18 17:34> - Disposition Diagnosis: Asthma Disposition: HOME/ ROUTINE Condition: IMPROVED Discharge Instructions (ExitCare): Asthma, Adult (DC) Additional Instructions: MERY ERNST, thank you for letting us take care of you today. The emergency medical care you received today was directed at your acute symptoms. If you were prescribed any medication, please fill it and take as directed. It may take s everal days for your symptoms to resolve. Return to the Emergency Department if your symptoms worsen, do not improve, or if you have any other problems. Please contact your doctor or call one of the physicians/clinics you have been referred to that are listed on the Patient Visit Information form that is included in your discharge packet. Bring any paperwork you were given at discharge with you along with any medications you are taking to your follow up visit. Our treatment cannot replace ongoing medical care by a primary care provider outside of the emergency department. Thank you for allowing the [facility] team to be part of your care today. Follow up with your primary care doctor in 2-3 days for re-evaluation and further management. Prescriptions: predniSONE [Prednisone] 40 mg PO DAILY #10 tab Referrals: Arun Connors Jr., MD [Primary Care Provider] - Follow up with primary Forms: [email or web address] (Turkmen)
[2018-07-24] MEDS ORDERED: Magnesium Sulfate 2 gm/50 ml 2 GM/50 ML BAG IVPB ONE (10:07)
[2018-07-24 10:32] LABS: BASO # 0.01 K/mm3 (0.0-2.0); BASO % 0.1 % (0.0-3.0); EOS # 0.2 (0.0-0.7); GRAN # 5.23 (1.4-6.5); GRAN % 68.9 % (50.0-68.0); HEMOGLOBIN 10.2 g/dL (12.0-16.0); LYMPH # 1.6 (1.2-3.4); LYMPH % 21.3 % (22.0-35.0); MEAN CELL VOLUME 68.6 fl (80.0-105.0); MEAN CORPUSCULAR HEMOGLOBIN 19.1 pg (25.0-35.0); MEAN CORPUSCULAR HGB CONC 27.8 g/dl (31.0-37.0); MONO # 0.5 (0.1-0.6); MONO % 6.7 % (1.0-6.0); RBC 5.35 10^6/uL (3.5-6.1); RED CELL DISTRIBUTION WIDTH 21.3 % (11.5-14.5); WHITE BLOOD COUNT 7.6 10^3/uL (4.5-11.0)
[2018-07-24 10:42] LABS: ALB/GLOB RATIO 1.2 (1.1-1.8); ALBUMIN 3.6 g/dL (3.0-4.8); ALT/SGPT 22 U/L (7-56); AST/SGOT 35 U/L (14-36); BLOOD UREA NITROGEN 8 mg/dL (7-21); CALCIUM 7.9 mg/dL (8.4-10.5); GFR NON-AFRICAN AMERICAN > 60
[2018-07-24] MEDS: Albuterol-Ipratrop 3 mg / 0.5 (3 ml) UD IH SCH ×3 (10:52→11:24)
[2018-07-24 10:53] LABS: TROPONIN I < 0.01 ng/mL
--- NOTE | 2018-07-24 11:20 | RAD ---
HISTORY: r/o infiltrate COMPARISON: Chest x-ray performed 06/22/18 TECHNIQUE: Chest, one view. FINDINGS: Examination limited by habitus. LUNGS: No focal consolidation. Please note that chest x-ray has limited sensitivity for the detection of pulmonary masses. PLEURA: No significant pleural effusion identified. No definite pneumothorax . CARDIOVASCULAR: Borderline cardiomegaly. Ectatic aorta. No significant atherosclerotic calcification present. OSSEOUS STRUCTURES: No acute osseous abnormality identified. VISUALIZED UPPER ABDOMEN: Unremarkable. OTHER FINDINGS: None. IMPRESSION: Borderline cardiomegaly. No focal consolidation.
[2018-07-24 11:24] LABS: URINE BILIRUBIN NEGATIVE (NEGATIVE); URINE BLOOD NEGATIVE (NEGATIVE); URINE GLUCOSE (UA) NEGATIVE (NEGATIVE); URINE LEUKOCYTE ESTERASE NEGATIVE Leu/uL (NEGATIVE); URINE PROTEIN 30 mg/dL (<30 mg/dL)
[2018-07-24 11:25] LABS: URINE APPEARANCE SL CLOUDY (CLEAR); URINE COLOR YELLOW (YELLOW)
[2018-07-24 11:32] LABS: URINE RBC 0 - 2 /hpf (0-2)
[2018-07-24 11:33] LABS: URINE AMORPHOUS SEDIMENT FEW /hpf; URINE BACTERIA MANY /hpf; URINE EPITHELIAL CELLS MANY /hpf (0-5)
[2018-07-24 12:55] VITALS: BP 117/55; PULSE 105; RESP 16; TEMP 98; O2SAT 96
--- NOTE | 2018-07-25 10:09 | CARD ---
APPROVED REPORT Date of service: 07/24/2018 EKG Measurement Heart [id number] <Conclusion> Normal sinus rhythm Minimal voltage criteria for LVH, may be normal variant Borderline ECG
== END 2018-07-24 12:50 | disposition home or self-care (01) ==
LOC: ED 09:18
DX: J45.909 Unspecified asthma, uncomplicated (principal); F41.9 Anxiety disorder, unspecified
CPT/HCPCS: 71045; 80053; 81001; 82550; 83615; 83735; 84484; 85025; 87804; 93005; 94640; 96374; 96375; 99283; J2930

== ENCOUNTER 2018-12-02 09:14 | Emergency (ER) | payer MEDICAID ==
[2018-12-02 09:20] VITALS: BMI 38.2
[2018-12-02] MEDS ORDERED: Magnesium Sulfate 2 gm/50 ml 2 GM/50 ML BAG IVPB ONE (09:42)
--- NOTE | 2018-12-02 09:44 | ED PDOC ---
Arrival/HPI - General Chief Complaint: Shortness Of Breath Time Seen by Provider: 12/02/18 09:22 Historian: Patient - History of Present Illness Narrative History of Present Illness (Text): 12/02/18 09:40 43 year old F with pmh of asthma presents complaining of chest tightness w/mild wheezing, sob and dyspnea on exertion since last night. Patient admits to being complaint with asthma pump. Patient denies any fevers, chills, headache, dizziness, chest pain, cough, diaphoresis, abdominal pain, nausea, vomiting, diarrhea, back pain, neck pain, or any other complaint. Time/Duration: 24 hours Symptom Onset: Sudden Symptom Course: Unchanged Activities at Onset: Light Context: Home Past Medical History - Provider Review Nursing Documentation Reviewed: Yes - Past History Past History: No Previous - Infectious Disease Hx of Infectious Diseases: None - Tetanus Immunization Tetanus Immunization: Unknown - Cardiac Hx Cardiac Disorders: No - Pulmonary Hx Asthma: Yes - Neurological Hx Alzheimer's Disease: No Hx Migraine: Yes - HEENT Hx HEENT Disorder: No - Renal Hx Renal Disorder: No - Endocrine/Metabolic Hx Endocrine Disorders: No - Hematological/Oncological Hx Blood Disorders: No - Integumentary Hx Dermatological Disorder: No - Musculoskeletal/Rheumatological Hx Musculoskeletal Disorders: Yes Hx Back Pain: Yes Hx Herniated Disk: Yes - Gastrointestinal Hx Gastrointestinal Disorders: No - Genitourinary/Gynecological Hx Genitourinary Disorders: No - Psychiatric Hx Anxiety: Yes Hx Depression: Yes Hx Panic Disorder: Yes Hx Substance Use: No - Surgical History Hx Section: Yes (X2(1996,2005)) Hx Tubal Ligation: Yes - Anesthesia Hx Anesthesia: Yes Hx Anesthesia Reactions: No Hx Malignant Hyperthermia: No - Suicidal Assessment Feels Threatened In Home Enviroment: No Family/Social History - Physician Review Nursing Documentation Reviewed: Yes Family/Social History: Unknown Family HX Smoking Status: Never Smoked Hx Alcohol Use: No Hx Substance Use: No Hx Substance Use Treatment: No Allergies/Home Meds Allergies/Adverse Reactions: Allergies seasonal Allergy (Mild, Uncoded 12/02/18 09:20) CONGESTION Home Medications: Home Meds Medication Instructions Recorded Confirmed Amitriptyline [Elavil] 100 mg PO BID 09/15/16 12/02/18 Omeprazole 40 mg PO DAILY 09/15/16 12/02/18 Trazodone HCl 150 mg PO HS 09/15/16 12/02/18 Review of Systems - Physician Review All systems were reviewed & negative as marked: Yes - Review of Systems Constitutional: absent: Fevers ENT: absent: Sore Throat, Rhinorrhea, Epistaxis Respiratory: SOB, Wheezing. absent: Cough Cardiovascular: WOLFE. absent: Chest Pain, Palpitations, Orthopnea, Syncope Gastrointestinal: absent: Abdominal Pain, Constipation, Diarrhea, Nausea, Vomiting, Hematochezia, Hematemesis Genitourinary Female: absent: Dysuria, Hematuria Musculoskeletal: absent: Arthralgias, Back Pain, Joint Swelling, Myalgias Skin: absent: Rash, Laceration, Abscess Neurological: absent: Headache, Dizziness Physical Exam Vital Signs Reviewed: Yes Vital Signs Temp Pulse Resp BP Pulse Ox 12/02/18 09:26 98.0 F 95 H 18 139/81 96 Temperature: Afebrile Blood Pressure: Normal Pulse: Regular Respiratory Rate: Normal Appearance: Positive for: Well-Appearing, Non-Toxic, Comfortable Pain Distress: Mild Mental Status: Positive for: Alert and Oriented X 3 - Systems Exam Head: Present: Atraumatic, Normocephalic Pupils: Present: PERRL Extroacular Muscles: Present: EOMI Conjunctiva: Present: Normal Mouth: Present: Moist Mucous Membranes Neck: Present: Normal Range of Motion Respiratory/Chest: Present: Good Air Exchange, Wheezes (minimal). No: Respiratory Distress, Accessory Muscle Use Cardiovascular: Present: Regular Rate and Rhythm, Normal S1, S2. No: Murmurs Abdomen: No: Tenderness, Distention, Peritoneal Signs Back: Present: Normal Inspection Upper Extremity: Present: Normal Inspection. No: Cyanosis, Edema Lower Extremity: Present: Normal Inspection. No: Edema Neurological: Present: GCS=15, CN II-XII Intact, Speech Normal Skin: Present: Warm, Dry, Normal Color. No: Rashes Psychiatric: Present: Alert, Oriented x 3, Normal Insight, Normal Concentration Medical Decision Making ED Course and Treatment: 12/02/18 09:44 Impression: 43 year old F presents complaining of chest tightness w/mild wheezing, sob and dyspnea on exertion since last night Plan: -- Duoneb -- Solu medrol -- Mg -- Labs -- Reassess and disposition Prior Visits: Notes and results from previous visits were reviewed. Progress Notes: 12/02/18 10:45 Patient is feeling better, complaints has resolved. No wheezing. Will discharge and advised to return to ED for any worsening conditions. - Scribe Statement The provider has reviewed the documentation as recorded by the [place] All medical record entries made by the Scribe were at my direction and personally dictated by me. I have reviewed the chart and agree that the record accurately reflects my personal performance of the history, physical exam, medical decision making, and the department course for this patient. I have also personally directed, reviewed, and agree with the discharge instructions and disposition. Disposition/Present on Arrival - Present on Arrival Any Indicators Present on Arrival: No History of DVT/PE: No History of Uncontrolled Diabetes: No Urinary Catheter: No History of Decub. Ulcer: No History Surgical Site Infection Following: None - Disposition Have Diagnosis and Disposition been Completed?: Yes Diagnosis: Exacerbation of asthma Disposition: HOME/ ROUTINE Disposition Time: 10:45 Condition: IMPROVED Discharge Instructions (ExitCare): Asthma, Adult (DC) Additional Instructions: MERY ERNST, thank you for letting us take care of you today. The emergency medical care you received today was directed at your acute symptoms. If you were prescribed any medication, please fill it and take as directed. It may take several days for your symptoms to resolve. Return to the Emergency Department if your symptoms worsen, do not improve, or if you have any other problems. Please contact your doctor or call one of the physicians/clinics you have been referred to that are listed on the Patient Visit Information form that is included in your discharge packet. Bring any paperwork you were given at discharge with you along with any medications you are taking to your follow up visit. Our treatment cannot replace ongoing medical care by a primary care provider outside of the emergency department. Thank you for allowing the [facility] team to be part of your care today. Follow up with your primary care doctor in 2-3 days for re-evaluation and further management. Prescriptions: predniSONE [Prednisone] 40 mg PO DAILY #10 tab Referrals: [employer] [facility], [Non-Staff] - Follow up with primary Forms: [employer] (Citizen [place])
[2018-12-02] MEDS: Albuterol-Ipratrop 3 mg / 0.5 (3 ml) UD IH SCH ×3 (09:50→10:29)
[2018-12-02 10:08] LABS: BASO # 0.02 K/mm3 (0.0-2.0); BASO % 0.2 % (0.0-3.0); EOS # 0.2 (0.0-0.7); EOS % 1.9 % (1.5-5.0); HEMOGLOBIN 9.8 g/dL (12.0-16.0); LYMPH # 0.8 (1.2-3.4); LYMPH % 8.6 % (22.0-35.0); MEAN CELL VOLUME 67.2 fl (80.0-105.0); MEAN CORPUSCULAR HEMOGLOBIN 18.6 pg (25.0-35.0); MEAN CORPUSCULAR HGB CONC 27.6 g/dl (31.0-37.0); MEAN PLATELET VOLUME 8.3 fl (7.0-11.0); MONO # 0.3 (0.1-0.6); MONO % 3.1 % (1.0-6.0); RBC 5.28 10^6/uL (3.5-6.1); RED CELL DISTRIBUTION WIDTH 20.4 % (11.5-14.5); WHITE BLOOD COUNT 9.1 10^3/uL (4.5-11.0)
[2018-12-02 10:18] LABS: ALB/GLOB RATIO 1.1 (1.1-1.8); ALBUMIN 3.5 g/dL (3.0-4.8); ALT/SGPT 19 U/L (7-56); AST/SGOT 25 U/L (14-36); BLOOD UREA NITROGEN 10 mg/dL (7-21); CALCIUM 8.3 mg/dL (8.4-10.5); GFR NON-AFRICAN AMERICAN > 60
[2018-12-02 10:58] VITALS: BP 130/74; PULSE 93; RESP 19; TEMP 98.2; O2SAT 98
== END 2018-12-02 10:59 | disposition home or self-care (01) ==
LOC: ED 09:14
DX: J45.901 Unspecified asthma with (acute) exacerbation (principal); F41.9 Anxiety disorder, unspecified
CPT/HCPCS: 80053; 81025; 85025; 96374; 99283; J2930